=== PATIENT | female | born 1980 | race Caucasian/White ===

== ENCOUNTER 2021-12-07 11:16 | Inpatient (IN) ==
--- NOTE | 2021-12-07 11:43 | Emergency Department Note ---
History of Present Illness General Chief complaint: Swelling/Edema to Extremity Stated complaint: SWELLING LE Time Seen by Provider: 12/07/21 11:24 Source: family (Parents at bedside) History of Present Illness Provider complaint: Left lower extremity swelling Onset (ago): day(s) 1 Location: lower extremity and left Radiation: non-radiation Maximum Pain Intensity: 0 40-year-old female presents emergency department for left lower extremity swelling. Patient has significant developmental delay, is blind, nonverbal, and history is provided by the parents. The parents report that the patient started having swelling of the left lower extremity today. They report no falls. Patient is nonmobile. She is in her wheelchair. They report no fevers. They state that she has been having her normal 30 seizures a day which is at her baseline. Father reports that the patient's blood pressure is usually in the 110s and her heart rate is sometimes elevated. Patient is him immunized. 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 Home Medications Medication Instructions Recorded Confirmed Type ciprofloxacin HCl 250 mg tablet 250 mg PO BID 12/07/21 12/07/21 History clonazepam 2 mg disintegrating 1 mg PO DAILY PRN 12/07/21 12/07/21 History tablet desonide 0.05 % topical cream 1 applic TOPICAL DAILY PRN 12/07/21 12/07/21 History levetiracetam 1,000 mg tablet See Rx Instructions .ROUTE .COMPLEX 12/07/21 12/07/21 History levetiracetam 250 mg tablet See Rx Instructions .ROUTE .COMPLEX 12/07/21 12/07/21 History phenobarbital 32.4 mg tablet 64.8 mg PO BID 12/07/21 12/07/21 History Allergies Allergy/AdvReac Type Severity Reaction Status Date / Time levetiracetam [From [facility]] AdvReac Severe high Unverified 12/07/21 14:48 ammonia Macrolide Antibiotics AdvReac Severe Rash Unverified 12/07/21 14:48 peach AdvReac Intermediate Rash Unverified 12/07/21 14:48 Past Med/Surg History Medical History Blind Developmental delay, profound No pertinent family history Seizure Viral encephalitis Surgical History No pertinent past surgical history Social History Smoking Status: Never smoker Feels Safe at Home: Yes Review of Systems Unobtainable due to cognitive status Physical Exam Vital Signs Vital Signs - 24 hr 12/07/21 11:19 12/07/21 12:42 12/07/21 12:45 Temperature 36.6 C Temperature Source Temporal Artery Scan Pulse Rate 123 H 122 H 121 H Pulse Rate from SpO2 Sensor 121 H Respiratory Rate 18 19 20 Respiratory Depth Normal Blood Pressure 94/66 L 98/73 L Blood Pressure Mean 75 81 Pulse Oximetry 98 98 Oxygen Delivery Method Room Air Room Air Room Air Sepsis Recent Fever Within 48 Hours No Sepsis New/Unexplained Change in Mental Status No Sepsis Action Taken by Nursing No Action Required 12/07/21 12:50 12/07/21 13:00 12/07/21 13:01 Temperature Temperature Source Pulse Rate 122 H 120 H 120 H Pulse Rate from SpO2 Sensor 120 H 120 H 119 H Respiratory Rate 19 15 22 Respiratory Depth Blood Pressure 112/84 Blood Pressure Mean 93 Pulse Oximetry 95 96 96 Oxygen Delivery Method Room Air Room Air Room Air Sepsis Recent Fever Within 48 Hours Sepsis New/Unexplained Change in Mental Status Sepsis Action Taken by Nursing 12/07/21 13:10 12/07/21 13:20 12/07/21 13:30 Temperature Temperature Source Pulse Rate 107 H 120 H 117 H Pulse Rate from SpO2 Sensor 119 H 120 H 117 H Respiratory Rate 20 19 21 Respiratory Depth Blood Pressure 134/103 H Blood Pressure Mean 113 Pulse Oximetry 95 95 95 Oxygen Delivery Method Room Air Room Air Room Air Sepsis Recent Fever Within 48 Hours Sepsis New/Unexplained Change in Mental Status Sepsis Action Taken by Nursing 12/07/21 13:40 12/07/21 13:50 12/07/21 14:00 Temperature Temperature Source Pulse Rate 110 H 116 H 115 H Pulse Rate from SpO2 Sensor 118 H 117 H 116 H Respiratory Rate 22 20 26 H Respiratory Depth Blood Pressure 111/77 Blood Pressure Mean 88 Pulse Oximetry 94 95 95 Oxygen Delivery Method Room Air Room Air Room Air Sepsis Recent Fever Within 48 Hours Sepsis New/Unexplained Change in Mental Status Sepsis Action Taken by Nursing 12/07/21 14:10 12/07/21 14:20 12/07/21 14:30 Temperature Temperature Source Pulse Rate 112 H 110 H Pulse Rate from SpO2 Sensor 112 H 110 H Respiratory Rate 18 35 H Respiratory Depth Blood Pressure 106/77 Blood Pressure Mean 86 Pulse Oximetry 96 96 Oxygen Delivery Method Room Air Room Air Sepsis Recent Fever Within 48 Hours Sepsis New/Unexplained Change in Mental Status Sepsis Action Taken by Nursing 12/07/21 15:17 12/07/21 15:30 12/07/21 16:00 Temperature Temperature Source Pulse Rate Pulse Rate from SpO2 Sensor Respiratory Rate Respiratory Depth Blood Pressure 108/72 94/76 L 98/73 L Blood Pressure Mean 84 82 81 Pulse Oximetry Oxygen Delivery Method Sepsis Recent Fever Within 48 Hours Sepsis New/Unexplained Change in Mental Status Sepsis Action Taken by Nursing 12/07/21 16:30 Temperature Temperature Source Pulse Rate Pulse Rate from SpO2 Sensor Respiratory Rate Respiratory Depth Blood Pressure 97/64 L Blood Pressure Mean 75 Pulse Oximetry Oxygen Delivery Method Sepsis Recent Fever Within 48 Hours Sepsis New/Unexplained Change in Mental Status Sepsis Action Taken by Nursing Physical Exam GENERAL: Extremely frail appearing cachectic female with contractures in wheelchair. Parents are at bedside. Father helped move the patient to the bed. HENT: Exam performed. -Head: Normocephalic and atraumatic. -Right Ear: External ear normal. No mastoid tenderness. -Left Ear: External ear normal. No mastoid tenderness. CV: Tachycardic rate, regular rhythm, normal heart sounds and intact distal pulses. There is no peripheral edema. Palpable radial pulses bue. PULM/CHEST: Diminished breath sounds bilaterally. ABD: The abdomen is soft. MUSC/SKEL: Bilateral upper and lower extremities are severely contracted. There is swelling to the left lower extremity. Palpable DP and PT pulses bilateral lower extremities. NEURO: At baseline per parents. SKIN: Abrasion over the left knee. Course Course 1124: The patient was evaluated in room B8. A complete history and physical exam was performed Cardiac monitoring: An order was placed for continuous cardiac monitoring. The monitor shows a rate of 120 with sinus tachycardia rhythm 1325: residential service technician states there is a large left-sided DVT. Given the patient's tachycardia will obtain CTA of the chest to rule out PE. 1534: Vital signs improved with IV fluids. Labs show an elevated troponin. White blood cell count 14. CTA of the chest does show large PE burden with right heart strain. We will plan on admitting the patient to the hospital service. Will obtain CT of the head prior to administering heparin. 1630: Vital signs stable. CT of the head shows no ICH. Will start heparin for the patient's PEs and DVT. Patient be admitted to the [facility] hospitalist team. Administered Medications Heparin Sodium/Dextrose (Heparin Sodium/Dextrose) 25,000 units in 500 mls @ 14 mls/hr IV .Q24H GINA; Protocol Stop: 01/06/22 15:44 Last Admin: 12/07/21 16:31 Dose: 700 units/hr, 14 mls/hr Documented by: [id number] Cosigned by: [id number] Sodium Chloride (Nss) 500 mls @ 100 mls/hr IV .Q5H GINA Stop: 01/06/22 16:14 Last Admin: 12/07/21 16:35 Dose: 100 mls/hr Documented by: [id number] Discontinued Medications Heparin Sodium (Porcine) (Heparin Sod (Porcine) 1000 Unit/Ml) 1 units IV NOW ONE Stop: 12/07/21 15:46 Last Admin: 12/07/21 16:30 Dose: 3,000 units Documented by: [id number] Cosigned by: [id number] Heparin Sodium/Dextrose (Heparin Iv Adult Wt-Based Standard With Bolus Protocol) 1 ea IV NOW STA; Protocol Stop: 12/07/21 15:31 Last Admin: 12/07/21 16:35 Dose: 1 ea Documented by: [id number] Sodium Chloride (Nss 1000ml) 1,000 mls @ 999 mls/hr IV .Q1H1M ONE Stop: 12/07/21 13:56 Last Infusion: 12/07/21 14:25 Dose: 0 mls/hr Documented by: [id number] Admin: 12/07/21 13:24 Dose: 999 mls/hr Documented by: [id number] Ioversol (Optiray 320 125ml) 110 ml IV ONCE ONE Stop: 12/07/21 15:16 Last Admin: 12/07/21 15:16 Dose: 110 ml Documented by: [id number] Lorazepam (Lorazepam 2 Mg/1 Ml Vial) 0.25 mg IV NOW STA Stop: 12/07/21 14:23 Last Admin: 12/07/21 14:35 Dose: 0.25 mg Documented by: [id number] Critical Care Time Critical Care Time: Yes Total Critical Care Time: 43 I have personally spent greater than 43 minutes of critical care time in the direct management of this patient. This includes bedside care, interpretation of diagnostic studies, and testing, discussion with consultants, patient, and family members, and other required patient management activities. This 43 minutes is in excess of all separately billable procedures. Medical Decision Making Laboratory Data Result diagrams: 12/07/21 12:34 12/07/21 14:09 Lab Results 12/07/21 12/07/21 12/07/21 Range/Units 12:34 12:34 12:34 WBC 14.12 H (4.8-10.8) K/uL RBC 4.13 L (4.2-5.4) M/uL Hgb 13.9 (12.0-16.0) g/dL Hct 42.1 (37-47) % MCV 101.9 H (80-100) fL MCH 33.7 (25-34) pg MCHC 33.0 (32-36) g/dL RDW Std Deviation 45.4 (36.4-46.3) fL RDW Coeff of Dwight 12.2 (11.5-14.5) % Plt Count 123 L (130-400) K/uL MPV 11.7 H (7.4-10.4) fL Immature Gran % (Auto) 0.4 % Neut % (Auto) 81.9 % Lymph % (Auto) 7.0 % [place] % (Auto) 10.5 % Eos % (Auto) 0.0 % Baso % (Auto) 0.2 % Neut # (Auto) 11.57 H (1.4-6.5) K/uL Lymph # (Auto) 0.99 L (1.2-3.4) K/uL [place] # (Auto) 1.48 H (0.11-0.59) K/uL Eos # (Auto) 0.00 (0-0.5) K/uL Baso # (Auto) 0.03 (0-0.2) K/uL Immature Gran # (Auto) 0.05 H (0.00-0.02) K/uL PT Cancelled INR Cancelled APTT Cancelled PTT Ratio Cancelled Sodium 142 (136-145) mmol/L Potassium TNP Chloride 111 H (98-107) mmol/L Carbon Dioxide 23 (21-32) mmol/L Anion Gap 8 (3-11) BUN 13 (6-23) mg/dl Creatinine 0.62 (0.6-1.2) mg/dl Est Cr Clr Drug Dosing 71.1 ml/min Est GFR ( Amer) 128.0 ml/min Est GFR (Non-Af Amer) 110.4 ml/min BUN/Creatinine Ratio 21.0 H (10-20) Glucose 137 H (70-99(Fasting)) mg/dl Lactate (0.4-2.0) mmol/L Calcium 8.1 L (8.5-10.1) mg/dl Magnesium 2.3 (1.7-2.4) mg/dl Total Bilirubin 0.4 (0.2-1.0) mg/dl AST TNP ALT 23 (7-52) U/L Alkaline Phosphatase 115 H (34-104) U/L Troponin I 0.06 H* (0-0.04) ng/ml Total Protein 7.3 (6.0-8.3) gm/dl Albumin 3.5 (3.4-5.0) gm/dl Globulin 3.8 (2.5-4.0) gm/dl Albumin/Globulin Ratio 0.9 (0.9-2) Procalcitonin Urine Color Urine Appearance (Clear) Urine pH (4.5-7.5) Ur Specific [place] (1.000-1.030) Urine Protein (Negative) Urine Glucose (UA) (Negative) Urine Ketones (Negative) Urine Blood (Negative) Urine Nitrite (Negative) Urine Bilirubin (Negative) Urine Urobilinogen (Negative) Ur Leukocyte Esterase (Negative) Urine WBC (Auto) (0-5) /hpf Urine RBC (Auto) (0-4) /hpf U Hyaline Cast (Auto) (0-5) /lpf U Epithel Cells (Auto) (0-5) /lpf Urine Bacteria (Auto) (Negative) Urine Yeast SARS-CoV-2, RNA, NAAT (NEGATIVE) 12/07/21 12/07/21 12/07/21 Range/Units 12:34 12:34 12:56 WBC (4.8-10.8) K/uL RBC (4.2-5.4) M/uL Hgb (12.0-16.0) g/dL Hct (37-47) % MCV (80-100) fL MCH (25-34) pg MCHC (32-36) g/dL RDW Std Deviation (36.4-46.3) fL RDW Coeff of Dwight (11.5-14.5) % Plt Count (130-400) K/uL MPV (7.4-10.4) fL Immature Gran % (Auto) % Neut % (Auto) % Lymph % (Auto) % [place] % (Auto) % Eos % (Auto) % Baso % (Auto) % Neut # (Auto) (1.4-6.5) K/uL Lymph # (Auto) (1.2-3.4) K/uL [place] # (Auto) (0.11-0.59) K/uL Eos # (Auto) (0-0.5) K/uL Baso # (Auto) (0-0.2) K/uL Immature Gran # (Auto) (0.00-0.02) K/uL PT INR APTT PTT Ratio Sodium (136-145) mmol/L Potassium Chloride (98-107) mmol/L Carbon Dioxide (21-32) mmol/L Anion Gap (3-11) BUN (6-23) mg/dl Creatinine (0.6-1.2) mg/dl Est Cr Clr Drug Dosing ml/min Est GFR ( Amer) ml/min Est GFR (Non-Af Amer) ml/min BUN/Creatinine Ratio (10-20) Glucose (70-99(Fasting)) mg/dl Lactate 1.4 (0.4-2.0) mmol/L Calcium (8.5-10.1) mg/dl Magnesium (1.7-2.4) mg/dl Total Bilirubin (0.2-1.0) mg/dl AST ALT (7-52) U/L Alkaline Phosphatase (34-104) U/L Troponin I (0-0.04) ng/ml Total Protein (6.0-8.3) gm/dl Albumin (3.4-5.0) gm/dl Globulin (2.5-4.0) gm/dl Albumin/Globulin Ratio (0.9-2) Procalcitonin Cancelled Urine Color Urine Appearance (Clear) Urine pH (4.5-7.5) Ur Specific [place] (1.000-1.030) Urine Protein (Negative) Urine Glucose (UA) (Negative) Urine Ketones (Negative) Urine Blood (Negative) Urine Nitrite (Negative) Urine Bilirubin (Negative) Urine Urobilinogen (Negative) Ur Leukocyte Esterase (Negative) Urine WBC (Auto) (0-5) /hpf Urine RBC (Auto) (0-4) /hpf U Hyaline Cast (Auto) (0-5) /lpf U Epithel Cells (Auto) (0-5) /lpf Urine Bacteria (Auto) (Negative) Urine Yeast SARS-CoV-2, RNA, NAAT NEGATIVE (NEGATIVE) 12/07/21 12/07/21 12/07/21 Range/Units 14:09 14:09 14:09 WBC (4.8-10.8) K/uL RBC (4.2-5.4) M/uL Hgb (12.0-16.0) g/dL Hct (37-47) % MCV (80-100) fL MCH (25-34) pg MCHC (32-36) g/dL RDW Std Deviation (36.4-46.3) fL RDW Coeff of Dwight (11.5-14.5) % Plt Count (130-400) K/uL MPV (7.4-10.4) fL Immature Gran % (Auto) % Neut % (Auto) % Lymph % (Auto) % [place] % (Auto) % Eos % (Auto) % Baso % (Auto) % Neut # (Auto) (1.4-6.5) K/uL Lymph # (Auto) (1.2-3.4) K/uL [place] # (Auto) (0.11-0.59) K/uL Eos # (Auto) (0-0.5) K/uL Baso # (Auto) (0-0.2) K/uL Immature Gran # (Auto) (0.00-0.02) K/uL PT 11.8 INR 1.2 H APTT 25.9 PTT Ratio 1.0 Sodium (136-145) mmol/L Potassium 4.0 Chloride (98-107) mmol/L Carbon Dioxide (21-32) mmol/L Anion Gap (3-11) BUN (6-23) mg/dl Creatinine (0.6-1.2) mg/dl Est Cr Clr Drug Dosing ml/min Est GFR ( Amer) ml/min Est GFR (Non-Af Amer) ml/min BUN/Creatinine Ratio (10-20) Glucose (70-99(Fasting)) mg/dl Lactate (0.4-2.0) mmol/L Calcium (8.5-10.1) mg/dl Magnesium (1.7-2.4) mg/dl Total Bilirubin (0.2-1.0) mg/dl AST 16 ALT (7-52) U/L Alkaline Phosphatase (34-104) U/L Troponin I (0-0.04) ng/ml Total Protein (6.0-8.3) gm/dl Albumin (3.4-5.0) gm/dl Globulin (2.5-4.0) gm/dl Albumin/Globulin Ratio (0.9-2) Procalcitonin < 0.05 Urine Color Urine Appearance (Clear) Urine pH (4.5-7.5) Ur Specific [place] (1.000-1.030) Urine Protein (Negative) Urine Glucose (UA) (Negative) Urine Ketones (Negative) Urine Blood (Negative) Urine Nitrite (Negative) Urine Bilirubin (Negative) Urine Urobilinogen (Negative) Ur Leukocyte Esterase (Negative) Urine WBC (Auto) (0-5) /hpf Urine RBC (Auto) (0-4) /hpf U Hyaline Cast (Auto) (0-5) /lpf U Epithel Cells (Auto) (0-5) /lpf Urine Bacteria (Auto) (Negative) Urine Yeast SARS-CoV-2, RNA, NAAT (NEGATIVE) 12/07/21 Range/Units 14:15 WBC (4.8-10.8) K/uL RBC (4.2-5.4) M/uL Hgb (12.0-16.0) g/dL Hct (37-47) % MCV (80-100) fL MCH (25-34) pg MCHC (32-36) g/dL RDW Std Deviation (36.4-46.3) fL RDW Coeff of Dwight (11.5-14.5) % Plt Count (130-400) K/uL MPV (7.4-10.4) fL Immature Gran % (Auto) % Neut % (Auto) % Lymph % (Auto) % [place] % (Auto) % Eos % (Auto) % Baso % (Auto) % Neut # (Auto) (1.4-6.5) K/uL Lymph # (Auto) (1.2-3.4) K/uL [place] # (Auto) (0.11-0.59) K/uL Eos # (Auto) (0-0.5) K/uL Baso # (Auto) (0-0.2) K/uL Immature Gran # (Auto) (0.00-0.02) K/uL PT INR APTT PTT Ratio Sodium (136-145) mmol/L Potassium Chloride (98-107) mmol/L Carbon Dioxide (21-32) mmol/L Anion Gap (3-11) BUN (6-23) mg/dl Creatinine (0.6-1.2) mg/dl Est Cr Clr Drug Dosing ml/min Est GFR ( Amer) ml/min Est GFR (Non-Af Amer) ml/min BUN/Creatinine Ratio (10-20) Glucose (70-99(Fasting)) mg/dl Lactate (0.4-2.0) mmol/L Calcium (8.5-10.1) mg/dl Magnesium (1.7-2.4) mg/dl Total Bilirubin (0.2-1.0) mg/dl AST ALT (7-52) U/L Alkaline Phosphatase (34-104) U/L Troponin I (0-0.04) ng/ml Total Protein (6.0-8.3) gm/dl Albumin (3.4-5.0) gm/dl Globulin (2.5-4.0) gm/dl Albumin/Globulin Ratio (0.9-2) Procalcitonin Urine Color Dark Yellow Urine Appearance Clear (Clear) Urine pH 5.5 (4.5-7.5) Ur Specific [place] 1.020 (1.000-1.030) Urine Protein 1+ H (Negative) Urine Glucose (UA) Trace H (Negative) Urine Ketones Negative (Negative) Urine Blood 1+ H (Negative) Urine Nitrite Negative (Negative) Urine Bilirubin Negative (Negative) Urine Urobilinogen Negative (Negative) Ur Leukocyte Esterase Trace H (Negative) Urine WBC (Auto) 5-10 H (0-5) /hpf Urine RBC (Auto) 10-30 H (0-4) /hpf U Hyaline Cast (Auto) 1-5 (0-5) /lpf U Epithel Cells (Auto) >30 H (0-5) /lpf Urine Bacteria (Auto) Negative (Negative) Urine Yeast Not Reportable SARS-CoV-2, RNA, NAAT (NEGATIVE) Imaging Data Radiologist's Impression: Venous Doppler Study 12/07/21 11:33 LEFT LOWER EXTREMITY VENOUS DOPPLER HISTORY: Left leg swelling. COMPARISON STUDY: None. FINDINGS: Occlusive thrombus seen within the left external iliac, common femoral, superficial femoral, and popliteal veins. The visualized left calf vessels appear patent. IMPRESSION: Extensive DVT within the left lower extremity which involves the left external iliac vein. ACT 112: Negative or not required by law. Electronically signed by: Eric Sharif M.D. 12/07/2021 1:33 PM Chest X-Ray 12/07/21 11:34 XR chest 1V portable HISTORY: SEPSIS COMPARISON: None. FINDINGS: No pneumothorax. No pleural effusions. Severe dextroscoliosis of the thoracolumbar spine. There are low lung volumes. The heart is normal in size. Hazy right perihilar densities. The left lung is clear.. IMPRESSION: 1. Severe dextroscoliosis. 2. Hazy right perihilar densities which could be due to patient rotation or a mild pneumonitis. ACT 112: Negative or not required by law. Electronically signed by: Eric Sharif M.D. 12/07/2021 12:23 PM Chest CTA 12/07/21 13:24 CHEST CTA for PULMONARY ARTERIES CT DOSE: 284.06 mGy.cm HISTORY: Seizure. Hypoxia. Positive DVT. Assess for pulmonary embolus. TECHNIQUE: Multiaxial CT images of the chest were performed following the intravenous administration of contrast to evaluate the pulmonary arteries. Ma ximal intensity projection images were also obtained. A dose lowering technique was utilized adhering to the principles of ALARA. COMPARISON STUDY: None. FINDINGS: Limited views of the upper abdomen demonstrate a normal liver. Splenosis versus an accessory spleen within the left upper quadrant. This is of doubtful clinical significance. A few bilateral thyroid nodules with the largest on the right measuring 11 mm. This does not meet CT criteria for follow-up. No mediastinal or hilar lymphadenopathy. Normal esophagus. Dextroscoliosis of the t horacolumbar spine. No fractures within the visualized osseous structures. No pneumothorax. The central airways are patent. Faint groundglass densities within the left lower lobe posteriorly favor mild dependent change. Otherwise, no focal lung consolidations to suggest pneumonia or a pulmonary infarct. The heart is normal in size. There is mild flattening of the interventricular septum consistent with a right-sided heart strain. Normal caliber thoracic aorta with no evidence for dissection. Extensive bilateral pulmonary emboli involving the majority of the left lobar and segmental pulmonary arteries as well as the majority the right lower lobe pulmonary arteries. There are also pulmonary em boli seen within the right upper lobe and right middle lobe segmental pulmonary arteries. IMPRESSION: 1. Extensive bilateral pulmonary emboli. This results in mild right-sided heart strain. 2. No focal lung consolidations to suggest a pulmonary infarct. ACT 112: Negative or not required by law. Electronically signed by: Eric Sharif M.D. 12/07/2021 3:[address] 12/07/21 15:34 CT OF THE HEAD WITHOUT CONTRAST CLINICAL HISTORY: Seizure. COMPARISON STUDY: No previous studies for comparison. CT DOSE: 537.48 mGy.cm TECHNIQUE: Helical axial images of the head were obtained without IV contrast. Automated exposure control was utilized for the study. A dose lowering technique was utilized adhering to the principles of ALARA. FINDINGS: Sensitivity for detection of acute intracranial hemorrhage is diminished given intravascular contrast from recent contrast-enhanced CT. However, no acute intracranial hemorrhage is noted. Note is made of symmetric extensive encephalomalacia/volume loss within the bilateral temporal, parietal and occipital lobes. Associated gyral calcification is present. There is marked dilatation of the atria and temporal horns of the lateral ventricles. There are no findings to suggest acute dural sinus thrombosis or acute territorial infarct. No acute calvarial fracture is noted. Right temporal bone defect is chronic. IMPRESSION: 1. No acute intracranial hemorrhage. 2. Encephalomalacia/volume loss within the bilateral temporal, occipital and parietal lobes with symmetric marked dilatation of the atria and temporal horns of the lateral ventricles. These findings are chronic and suggest remote insult with resultant ventricular dilatation. 3. No acute calvarial fracture. ACT 112: Negative or not required by law. Electronically signed by: Jeremiah Duarte M.D. 12/07/2021 4:14 PM ECG Data Indication: + other (sepsis) Rate (beats per minute): 122 Rhythm: + sinus tachycardia ECG Intervals/blocks: + Normal RI and + Normal QT-c ECG ST segments: + Normal ST segments Additional Comments: QRS 62 MDM Narrative 1124: The patient was evaluated in room B8. A complete history and physical exam was performed Cardiac monitoring: An order was placed for continuous cardiac monitoring. The monitor shows a rate of 120 with sinus tachycardia rhythm 1325: residential service technician states there is a large left-sided DVT. Given the patient's tachycardia will obtain CTA of the chest to rule out PE. 1534: Vital signs improved with IV fluids. Labs show an elevated troponin. White blood cell count 14. CTA of the chest does show large PE burden with right heart strain. We will plan on admitting the patient to the hospital service. Will obtain CT of the head prior to administering heparin. 1630: Vital signs stable. CT of the head shows no ICH. Will start heparin for the patient's PEs and DVT. Patient be admitted to the [facility] Hospitalist team. Impression & Plan Pulmonary emboli Discharge Plan Visit Data Chief Complaint: Swelling/Edema to Extremity Stated Complaint: SWELLING LE ED Provider: Marcin Degroot Discharge Problem: Pulmonary emboli Patient Disposition: Admitted As Inpatient Forms Stand Alone Forms: [facility] Prescriptions Prescriptions: No Action desonide 0.05 % Cream 1 applic TOPICAL DAILY PRN (Reason: skin irratation) RF: 0 ciprofloxacin HCl 250 mg tablet 250 mg PO BID RF: 0 levetiracetam 250 mg tablet See Rx Instructions .ROUTE .COMPLEX RF: 0 phenobarbital 32.4 mg tablet 64.8 mg PO BID RF: 0 clonazepam 2 mg tablet,disintegrating 1 mg PO DAILY PRN (Reason: seizure/insomnia) RF: 0 levetiracetam 1,000 mg tablet See Rx Instructions .ROUTE .COMPLEX RF: 0 Referrals Referrals: PCP,NO [Physician] -
--- NOTE | 2021-12-07 12:25 | XRay Report ---
XR chest 1V portable HISTORY: SEPSIS COMPARISON: None. FINDINGS: No pneumothorax. No pleural effusions. Severe dextroscoliosis of the thoracolumbar spine. T here are low lung volumes. The heart is normal in size. Hazy right perihilar densities. The left lung is clear.. IMPRESSION: 1. Severe dextroscoliosis. 2. Hazy right perihilar densities which could be due to patient rotation or a mild pneumonitis. ACT 112: Negative or not required by law. Electronically signed by: Eric Sharif M.D. 12/07/2021 12:23 PM
[2021-12-07 12:53] LABS: Basophils # (auto) 0.03 K/uL (0-0.2); Basophils % (auto) 0.2 %; Hematocrit (blood only) 42.1 % (37-47); Hemoglobin 13.9 g/dL (12.0-16.0); Immature Granulocytes # (auto) 0.05 K/uL (0.00-0.02); Immature Granulocytes % (auto) 0.4 %; Lymphocytes # (auto) 0.99 K/uL (1.2-3.4); Mean Corpuscular Hemoglobin 33.7 pg (25-34); Mean Corpuscular Volume 101.9 fL (80-100); Mean Platelet Volume 11.7 fL (7.4-10.4); Monocytes # (auto) 1.48 K/uL (0.11-0.59); Monocytes % (auto) 10.5 %; Neutrophils # (auto) 11.57 K/uL (1.4-6.5); Neutrophils % (auto) 81.9 %; Platelet Count 123 K/uL (130-400); RDW Coefficient of Variation 12.2 % (11.5-14.5); RDW Standard Deviation 45.4 fL (36.4-46.3); Red Blood Count 4.13 M/uL (4.2-5.4); White Blood Count 14.12 K/uL (4.8-10.8)
[2021-12-07] MEDS ORDERED: SODIUM CHLORIDE 0.9% 1000ML 1,000 ML IV ONE (12:56)
[2021-12-07 13:34] LABS: Alanine Aminotransferase 23 U/L (7-52); Albumin Globulin Ratio 0.9 (0.9-2); Albumin Level 3.5 gm/dl (3.4-5.0); Alkaline Phosphatase 115 U/L (34-104); Anion Gap 8 (3-11); Bilirubin,Total 0.4 mg/dl (0.2-1.0); Blood Urea Nitrogen 13 mg/dl (6-23); Calcium 8.1 mg/dl (8.5-10.1); Carbon Dioxide 23 mmol/L (21-32); Chloride 111 mmol/L (98-107); Creatinine Clr Calc Pharmacy 71.1 ml/min; Est GFR (Non-African American) 110.4 ml/min; Globulin 3.8 gm/dl (2.5-4.0); Glucose 137 mg/dl (70-99(Fasting)); Magnesium 2.3 mg/dl (1.7-2.4); Sodium 142 mmol/L (136-145); Total Protein 7.3 gm/dl (6.0-8.3)
--- NOTE | 2021-12-07 13:34 | Ultrasound Report ---
LEFT LOWER EXTREMITY VENOUS DOPPLER HISTORY: Left leg swelling. COMPARISON STUDY: None. FINDINGS: Occlusive thrombus seen within the left external iliac, common femoral, superficial femoral , and popliteal veins. The visualized left calf vessels appear patent. IMPRESSION: Extensive DVT within the left lower extremity which involves the left external iliac vein. ACT 112: Negative or not required by law. Electronically signed by: Eric Sharif M.D. 12/07/2021 1:33 PM
[2021-12-07] MEDS ORDERED: LORazepam 2 MG/1 ML VIAL IV STA (14:22)
[2021-12-07 14:39] LABS: INR 1.2 (0.9-1.1); Partial Thromboplastin Time 25.9 Seconds (21.0-31.0); Prothrombin Time 11.8 Seconds (9.0-12.0)
[2021-12-07 14:54] LABS: Appearance Urine Clear (Clear); Bacteria Urine Automated Negative (Negative); Bilirubin Urine Negative (Negative); Blood Urine 1+ (Negative); Color Urine Dark Yellow; Epithelial Cell Urine Auto >30 /lpf (0-5); Glucose Urine UA Trace (Negative); Ketones Urine Negative (Negative); Leukocyte Esterase Urine Trace (Negative); Nitrite Urine Negative (Negative); Protein Urine 1+ (Negative); Urobilinogen Urine Negative (Negative); pH Urine 5.5 (4.5-7.5)
[2021-12-07] MEDS ORDERED: OPTIRAY 320 125ml IV ONE (15:15)
--- NOTE | 2021-12-07 15:28 | CT Scan Report ---
CHEST CTA for PULMONARY ARTERIES CT DOSE: 284.06 mGy.cm HISTORY: Seizure. Hypoxia. Positive DVT. Assess for pulmonary embolus. TECHNIQUE: Multiaxial CT images of the chest were performed following the intravenous administration of contrast to evaluate the pulmonary arteries. Maximal intensity projection images were also obtaine d. A dose lowering technique was utilized adhering to the principles of ALARA. COMPARISON STUDY: None. FINDINGS: Limited views of the upper abdomen demonstrate a normal liver. Splenosis versus an accessor y spleen within the left upper quadrant. This is of doubtful clinical significance. A few bilateral t hyroid nodules with the largest on the right measuring 11 mm. This does not meet CT criteria for foll ow-up. No mediastinal or hilar lymphadenopathy. Normal esophagus. Dextroscoliosis of the thoracolumba r spine. No fractures within the visualized osseous structures. No pneumothorax. The central airways are patent. Faint groundglass densities within the left lower lobe posteriorly favor mild dependent c hange. Otherwise, no focal lung consolidations to suggest pneumonia or a pulmonary infarct. The heart is normal in size. There is mild flattening of the interventricular septum consistent with a right-s ided heart strain. Normal caliber thoracic aorta with no evidence for dissection. Extensive bilateral pulmonary emboli involving the majority of the left lobar and segmental pulmonary arteries as well a s the majority the right lower lobe pulmonary arteries. There are also pulmonary emboli seen within t he right upper lobe and right middle lobe segmental pulmonary arteries. IMPRESSION: 1. Extensive bilateral pulmonary emboli. This results in mild right-sided heart strain. 2. No focal lung consolidations to suggest a pulmonary infarct. ACT 112: Negative or not required by law. Electronically signed by: Eric Sharif M.D. 12/07/2021 3:27 PM
[2021-12-07] MEDS ORDERED: Heparin IV Adult Wt-Based Standard WITH Bolus Protocol IV STA (15:30)
[2021-12-07] MEDS ORDERED: HEPARIN SOD (PORCINE) 1000 UNIT/ML IV ONE (15:45)
--- NOTE | 2021-12-07 16:16 | CT Scan Report ---
CT OF THE HEAD WITHOUT CONTRAST CLINICAL HISTORY: Seizure. COMPARISON STUDY: No previous studies for comparison. CT DOSE: 537.48 mGy.cm TECHNIQUE: Helical axial images of the head were obtained without IV contrast. Automated exposure con trol was utilized for the study. A dose lowering technique was utilized adhering to the principles o f ALARA. FINDINGS: Sensitivity for detection of acute intracranial hemorrhage is diminished given intravascula r contrast from recent contrast-enhanced CT. However, no acute intracranial hemorrhage is noted. Note is made of symmetric extensive encephalomalacia/volume loss within the bilateral temporal, parietal and occipital lobes. Associated gyral calcification is present. There is marked dilatation of the atr ia and temporal horns of the lateral ventricles. There are no findings to suggest acute dural sinus t hrombosis or acute territorial infarct. No acute calvarial fracture is noted. Right temporal bone def ect is chronic. IMPRESSION: 1. No acute intracranial hemorrhage. 2. Encephalomalacia/volume loss within the bilateral temporal, occipital and parietal lobes with symm etric marked dilatation of the atria and temporal horns of the lateral ventricles. These findings are chronic and suggest remote insult with resultant ventricular dilatation. 3. No acute calvarial fracture. ACT 112: Negative or not required by law. Electronically signed by: Jeremiah Duarte M.D. 12/07/2021 4:14 PM
[2021-12-07] MEDS: HEPARIN SODIUM/DEXTROSE 25,000 UNITS/500 ML BAG IV SCH (16:31)
[2021-12-07] MEDS: SODIUM CHLORIDE 0.9% 500 ML IV SCH (16:35)
[2021-12-07] MEDS ORDERED: DESONIDE CR 15 GM TUBE EXT PRN (17:19)
--- NOTE | 2021-12-07 17:50 | History & Physical Report ---
Date of Service December 07, 2021 Assessment & Plan (1) Pulmonary emboli: (2) Developmental delay, profound: Plan: #. DVT and PE Patient presented with acute swelling of left lower extremity Admitting LLE venous Doppler positive for DVT Admitting CTA chest: Positive for extensive bilateral PE with mild right-sided heart strain. Admitting troponin elevated, trend troponins, get echo, EKG in a.m. Patient is started on heparin drip in the ED, continue with same. #. Increased seizures Parents report that patient has increased seizures since after starting ciprofloxacin for otitis externa right side on October 30, 2021 They do not want ciprofloxacin to be continued while inpatient. Per the parents, 3-4 seizures per week is normal for the patient but patient had 30 seizures on the day of arrival. Admitting CT head: No new acute findings. Continue home dose of medications, consult neuro, continue with IV fluids. Follow labs, await admitting blood cultures. #. History of cerebral palsy #. Developmental delay #. Failure to thrive Patient has history of cerebral palsy, at baseline gets on her knees in the padded areas of her home, wheelchair-bound other times Patient is on soft diet, likes oatmeal, BMI 16.6 at presentation, dietary consult DNR/DNI Patient on heparin drip for PE Disposition: PCU telemetry. History of Present Illness Chief Complaint: Acute LLE swelling Primary Care Provider: Danny Vee DO 41-year-old female with PMH of cerebral palsy, cortical blindness, cortical deafness, herpes simplex encephalitis at age 9-month, scoliosis and seizure disorder [patient of Dr. Figueroa] presented to our ED 12/07 with complaint of acute onset swelling of left lower extremity. Patient is cortical blind and cortical deaf, history received from records and from her parents at bedside. Per patient's parent, they noticed acute swelling of her left lower extremity on the morning of the day of her arrival, it was not like this the evening prior. On the background, patient had right ear swelling and was started on ciprofloxacin on October and patient has been having more seizures and becoming less active since then. At baseline she gets on her knees and moves around the padded areas in her room, rest of the time she is wheelchair-bound. But after starting ciprofloxacin, patient had had more seizures and had become less active. Per parents, patient did not have any fever but is having more seizures, is getting constipated lately; both of them after starting ciprofloxacin in October 30. They report patient swallow okay. Patient likes oatmeal/soft consistency diet/applesauce. Definitely no questions of his smoking/alcohol/recreational drugs. DNR/DNI per patient parents. Allergies Allergy/AdvReac Type Severity Reaction Status Date / Time levetiracetam [From [facility]] AdvReac Severe high Unverified 12/07/21 14:48 ammonia Macrolide Antibiotics AdvReac Severe Rash Unverified 12/07/21 14:48 peach AdvReac Intermediate Rash Unverified 12/07/21 14:48 Home Medications Medication Instructions Recorded Confirmed Type ciprofloxacin HCl 250 mg tablet 250 mg PO BID 12/07/21 12/07/21 History clonazepam 2 mg disintegrating 1 mg PO DAILY PRN 12/07/21 12/07/21 History tablet desonide 0.05 % topical cream 1 applic TOPICAL DAILY PRN 12/07/21 12/07/21 History levetiracetam 1,000 mg tablet See Rx Instructions .ROUTE .COMPLEX 12/07/21 12/07/21 History levetiracetam 250 mg tablet See Rx Instructions .ROUTE .COMPLEX 12/07/21 12/07/21 History phenobarbital 32.4 mg tablet 64.8 mg PO BID 12/07/21 12/07/21 History Past Med/Surg History Medical History Blind Developmental delay, profound No pertinent family history Seizure Viral encephalitis Surgical History No pertinent past surgical history Social History Smoking Status: Never smoker Feels Safe at Home: Yes Physical Exam Physical Exam: GENERAL: sleeping, couldn't hear, curled up, spastic hands and feet, lean and thin appearance HEENT: No pallor, no icterus. Pupils equal, round and reactive to light. Oral mucosa moist. NECK: No JVD, no neck masses. HEART: S1 and S2 heard. Regular rate and rhythm. No murmur, no gallop. RESPIRATORY SYSTEM: No accessory muscle use. No wheezing, no crackles. ABDOMEN: Soft, bowel sounds present, nontender, no distention. CENTRAL NERVOUS SYSTEM: No facial droop. EXTREMITIES: LLE swelling/warm with minimal erythema seen. RLE thin and no edema. Pt moved extremities Results & Data Results & Data ([facility]) Vital Signs (Past 12 Hours) Vital Signs Temp Pulse Resp BP Pulse Ox 12/07/21 16:30 97/64 L 12/07/21 16:00 98/73 L 12/07/21 15:30 94/76 L 12/07/21 15:17 108/72 12/07/21 14:30 106/77 12/07/21 14:20 110 H 35 H 96 12/07/21 14:10 112 H 18 96 12/07/21 14:00 115 H 26 H 111/77 95 12/07/21 13:50 116 H 20 95 12/07/21 13:40 110 H 22 94 12/07/21 13:30 117 H 21 134/103 H 95 12/07/21 13:20 120 H 19 95 12/07/21 13:10 107 H 20 95 12/07/21 13:01 120 H 22 112/84 96 12/07/21 13:00 120 H 15 96 12/07/21 12:50 122 H 19 95 12/07/21 12:45 121 H 20 98/73 L 98 12/07/21 12:42 122 H 19 12/07/21 11:19 36.6 C 123 H 18 94/66 L 98 Code Status & VTE Plan VTE Prophylaxis Plan VTE Prophylaxis will be ordered: No (1) Pulmonary emboli Pulmonary embolism type: multiple subsegmental (without acute cor pulmonale) Qualified Code(s): I26.94 - Multiple subsegmental pulmonary emboli without acute cor pulmonale
[2021-12-07] MEDS ORDERED: clonazePAM 1 MG TAB PO PRN (20:08)
[2021-12-07] MEDS ORDERED: PHENobarbitaL 30 MG TAB PO SCH (21:00)
[2021-12-07] MEDS ORDERED: SODIUM CHLORIDE 0.45 % 1,000 ML IV ONE (23:03)
[2021-12-07] MEDS: PHENobarbitaL 30 MG TAB PO SCH (23:05)
[2021-12-07 23:17] LABS: Partial Thromboplastin Ratio 2.4
[2021-12-07 23:42] LABS: Partial Thromboplastin Time 63.8 Seconds (21.0-31.0)
[2021-12-08 05:47] LABS: Hematocrit (blood only) 34.8 % (37-47); Hemoglobin 11.4 g/dL (12.0-16.0); Mean Corpuscular Hemoglobin 33.3 pg (25-34); Mean Corpuscular Hgb Conc 32.8 g/dL (32-36); Mean Corpuscular Volume 101.8 fL (80-100); Mean Platelet Volume 11.1 fL (7.4-10.4); Platelet Count 129 K/uL (130-400); RDW Coefficient of Variation 12.2 % (11.5-14.5); RDW Standard Deviation 45.4 fL (36.4-46.3); Red Blood Count 3.42 M/uL (4.2-5.4); White Blood Count 9.22 K/uL (4.8-10.8)
[2021-12-08 06:13] LABS: Partial Thromboplastin Ratio 2.2
[2021-12-08 06:30] LABS: Anion Gap 6 (3-11); Blood Urea Nitrogen 7 mg/dl (6-23); Calcium 7.6 mg/dl (8.5-10.1); Carbon Dioxide 21 mmol/L (21-32); Chloride 116 mmol/L (98-107); Creatinine Clr Calc Pharmacy 101.8 ml/min; Est GFR (African American) > 150.0 ml/min; Est GFR (Non-African American) 133.3 ml/min; Glucose 111 mg/dl (70-99(Fasting)); Phosphorus 2.1 mg/dl (2.5-4.9); Potassium 3.4 mmol/L (3.5-5.1); Sodium 143 mmol/L (136-145)
[2021-12-08 06:47] LABS: Partial Thromboplastin Time 58.4 Seconds (21.0-31.0)
--- NOTE | 2021-12-08 07:28 | Hospitalist Progress Note ---
Date of Service December 08, 2021 Assessment & Plan (1) Pulmonary emboli: (2) Developmental delay, profound: Plan: #. B/L PE d/t LLE DVT #. LLE DVT Patient presented with acute swelling of left lower extremity Admitting LLE venous Doppler positive for DVT Admitting CTA chest: Positive for extensive bilateral PE with mild right-sided heart strain. Admitting troponin elevated at 0.06, flat trended. Admitting ECHO with EF of >70% and grossly normal RV systolic function. Patient is started on heparin drip in the ED, continue with same. Oral anticoagulation to be discussed with family. #. Increased seizures Parents report that patient has increased seizures since after starting ciprofloxacin for otitis externa right side on October 30, 2021 They do not want ciprofloxacin to be continued while inpatient. Cipro DC'd. F/u with OP ENT for f/u on Otitis Externa. Per the parents, 3-4 seizures per week is normal for the patient but patient had 30 seizures on the day of arrival. Admitting CT head: No new acute findings. 12/08 EEG: reviewed. abnormal EEG d/w neuro Keppra dose increased 1.5 g BID Klonopin daily for now. Pt eating ok per RN, IVF if with decreased intake. #. History of cerebral palsy #. Developmental delay #. Failure to thrive Patient has history of cerebral palsy, at baseline gets on her knees in the padded areas of her home, wheelchair-bound other times Patient is on soft diet, likes oatmeal, BMI 16.6 at presentation, dietary consult - recs appreciated. DNR/DNI Patient on heparin drip for PE, need to transition to oral towards the day of DC. Disposition: PCU telemetry. Admission and Anticipated Discharge Date Admission Date: December 07, 2021 Subjective Patient seen and examined at bedside as a follow-up for massive bilateral PE and increased seizures. Patient is cortical deaf and cortical blind. Patient has history of cerebral palsy. Patient lying in bed, sleeping, not in acute distress, on room air. ROS n/a. Reviewed operative Physical Exam Physical Exam: GENERAL: sleeping, couldn't hear, curled up, spastic hands and feet, lean and thin appearance HEENT: No pallor, no icterus. Pupils equal, round and reactive to light. Oral mucosa moist. NECK: No JVD, no neck masses. HEART: S1 and S2 heard. Regular rate and rhythm. No murmur, no gallop. RESPIRATORY SYSTEM: No accessory muscle use. No wheezing, no crackles. ABDOMEN: Soft, bowel sounds present, nontender, no distention. CENTRAL NERVOUS SYSTEM: No facial droop. EXTREMITIES: LLE swelling/warm with minimal erythema seen. RLE thin and no edema. Pt moved extremities Results & Data Results & Data ([facility]) Vital Signs (Past 12 Hours) Vital Signs Temp Pulse Pulse Resp BP BP BP 12/08/21 05:17 36.5 C 104 H 14 106/69 12/08/21 00:32 37.0 C 115 H 16 96/72 L 12/07/21 19:40 37 C 108 H 20 100/72 Pulse Ox 12/08/21 05:17 97 12/08/21 00:32 98 12/07/21 19:40 96 (1) Pulmonary emboli Pulmonary embolism type: multiple subsegmental (without acute cor pulmonale) Qualified Code(s): I26.94 - Multiple subsegmental pulmonary emboli without acute cor pulmonale
[2021-12-08] MEDS ORDERED: levETIRAcetam 250 MG TAB PO SCH (07:30)
[2021-12-08] MEDS ORDERED: levETIRAcetam 500 MG TAB PO SCH ×2 (07:30→16:30)
[2021-12-08] MEDS: POLYETHYLENE (MIRALAX) 17 GM PACK PO SCH (07:56)
[2021-12-08] MEDS: PHENobarbitaL 30 MG TAB PO SCH (07:56)
[2021-12-08 08:28] LABS: Troponin I 0.06 ng/ml (0-0.04)
[2021-12-08] MEDS ORDERED: PHENobarbitaL 30 MG TAB PO SCH (09:00)
[2021-12-08] MEDS ORDERED: POTASSIUM PHOS 3 MMOL/1 ML INFUSION IV STA (09:21)
[2021-12-08] MEDS ORDERED: POTASSIUM PHOSPHATE 15 MMOL in DEXTROSE 5% 250 ML IV ONE (09:30)
[2021-12-08] MEDS: POTASSIUM CHLORIDE / WTR 10 MEQ/100 ML PLCT IV SCH ×2 (10:07→11:11)
--- NOTE | 2021-12-08 12:45 | Electrocardiogram Report ---
Test Reason : Blood Pressure : / mmHG Vent. Rate : 122 BPM Atrial Rate : 122 BPM P-R Int : 130 ms QRS Dur : 062 ms QT Int : 282 ms P-R-T Axes : 042 -46 038 degrees QTc Int : 401 ms Poor data quality, interpretation may be adversely affected Sinus tachycardia Low voltage QRS Left anterior fascicular block Septal infarct , age undetermined Abnormal ECG No previous ECGs available Confirmed by Ld Flores ([id number]) on 12/08/2021 12:45:20 PM Referred By: REFERRED SELF Confirmed By:Ld Flores
--- NOTE | 2021-12-08 13:02 | Electrocardiogram Report ---
Test Reason : Blood Pressure : / mmHG Vent. Rate : 110 BPM Atrial Rate : 110 BPM P-R Int : 122 ms QRS Dur : 050 ms QT Int : 294 ms P-R-T Axes : 085 001 012 degrees QTc Int : 397 ms Poor data quality, interpretation may be adversely affected Sinus tachycardia Low voltage QRS Septal infarct (cited on or before 07-DEC-2021) Abnormal ECG When compared with ECG of 07-DEC-2021 12:43, (unconfirmed) Left anterior fascicular block is no longer Present Questionable change in initial forces of Septal leads ST now depressed in Anterior leads Confirmed by Ld Flores ([id number]) on 12/08/2021 1:02:26 PM Referred By: REFERRED SELF Confirmed By:Ld Flores
[2021-12-08] MEDS: SODIUM CHLORIDE 0.9% 500 ML IV SCH (13:43)
--- NOTE | 2021-12-08 14:40 | Electroencephalogram ---
EEG Procedure Note Date of Service December 08, 2021 Start / End Times Start Time: 0120 End Time: 0140 Referring Physician Constance Thomas MD History Severe encephalopathy complicated by herpes encephalitis with longstanding mental retardation and seizure disorder now with multiple seizures in the setting of infectious illness question ongoing status epilepticus Chung weeks but the EMGs neck pain and there is asymmetry in the weakness and seizures in the clinic January 10, 2020Fridays of the objectively normal [place] is normal large wart to set up to go 0.08154 will be one of the throat 100 and is all day long on I think you should be on 1 tablet shortly anyway 10" recovery to come Topicort the numbers go to be after milk this is more 30 from have sent Wednesday will be the date is no swap this patient's he had another after then nothing after 141 4012 8:00 to 140 in the endocrine clinic 1 Home Medication List Medication Instructions Recorded Confirmed Type ciprofloxacin HCl 250 mg tablet 250 mg PO BID 12/07/21 12/07/21 History clonazepam 2 mg disintegrating 1 mg PO DAILY PRN 12/07/21 12/07/21 History tablet desonide 0.05 % topical cream 1 applic TOPICAL DAILY PRN 12/07/21 12/07/21 History levetiracetam 1,000 mg tablet See Rx Instructions .ROUTE .COMPLEX 12/07/21 12/07/21 History levetiracetam 250 mg tablet See Rx Instructions .ROUTE .COMPLEX 12/07/21 12/07/21 History phenobarbital 32.4 mg tablet 64.8 mg PO BID 12/07/21 12/07/21 History Inpatient Medication List Heparin Sodium/Dextrose (Heparin Sodium/Dextrose) 25,000 units in 500 mls @ 14 mls/hr IV .Q24H [facility]; Protocol Stop: 01/06/22 15:44 Last Admin: 12/07/21 16:31 Dose: 700 units/hr, 14 mls/hr Documented by: [id number] Cosigned by: [id number] Levetiracetam (Levetiracetam 250 Mg Tab) 250 mg PO QDB [facility]INA Stop: 01/07/22 07:29 Last Admin: 12/08/21 07:56 Dose: 250 mg Documented by: [id number] Levetiracetam (Levetiracetam 500 Mg Tab) 1,000 mg PO QDB GINA Stop: 01/07/22 07:29 Last Admin: 12/08/21 07:56 Dose: 1,000 mg Documented by: [id number] Phenobarbital (Phenobarbital 32.4 Mg Tab) 64.8 mg PO BID [facility] Stop: 01/06/22 22:29 Last Admin: 12/08/21 07:56 Dose: 64.8 mg Documented by: [id number] Admin: 12/07/21 23:05 Dose: 64.8 mg Documented by: [id number] Polyethylene Glycol (Polyethylene (Miralax) 17 Gm Pack) 8.5 gm PO DAILY GINA Stop: 01/07/22 08:59 Last Admin: 12/08/21 07:56 Dose: 8.5 gm Documented by: [id number] Discontinued Medications Heparin Sodium (Porcine) (Heparin Sod (Porcine) 1000 Unit/Ml) 1 units IV NOW ONE Stop: 12/07/21 15:46 Last Admin: 12/07/21 16:30 Dose: 3,000 units Documented by: [id number] Cosigned by: [id number] Heparin Sodium/Dextrose (Heparin Iv Adult Wt-Based Standard With Bolus Protocol) 1 ea IV NOW STA; Protocol Stop: 12/07/21 15:31 Last Admin: 12/07/21 16:35 Dose: 1 ea Documented by: [id number] Sodium Chloride (Nss 1000ml) 1,000 mls @ 999 mls/hr IV .Q1H1M ONE Stop: 12/07/21 13:56 Last Infusion: 12/07/21 14:25 Dose: 0 mls/hr Documented by: [id number] Admin: 12/07/21 13:24 Dose: 999 mls/hr Documented by: [id number] Sodium Chloride (Nss) 500 mls @ 100 mls/hr IV .Q5H [facility] Stop: 01/06/22 16:14 Last Admin: 12/08/21 13:43 Dose: Not Given Documented by: [id number] Infusion: 12/07/21 22:30 Dose: 0 mls/hr Documented by: [id number] Admin: 12/07/21 16:35 Dose: 100 mls/hr Documented by: [id number] Sodium Chloride (1/2 Nss) 1,000 mls @ 80 mls/hr IV .[id number] ONE Stop: 12/08/21 11:32 Last Infusion: 12/08/21 08:18 Dose: 0 mls/hr Documented by: [id number] Admin: 12/07/21 23:07 Dose: 80 mls/hr Documented by: [id number] Potassium Chloride (K Cj / Wtr) 10 meq in 100 mls @ 100 mls/hr IV Q1H [facility]INA; Protocol Stop: 12/08/21 11:59 Last Infusion: 12/08/21 12:16 Dose: 0 mls/hr Documented by: [id number] Admin: 12/08/21 11:11 Dose: 100 mls/hr Documented by: [id number] Infusion: 12/08/21 11:07 Dose: 100 mls/hr Documented by: [id number] Admin: 12/08/21 10:07 Dose: 100 mls/hr Documented by: [id number] Potassium Phosphate 15 mmol/ (Dextrose) 255 mls @ 102 mls/hr IV NOW ONE Stop: 12/08/21 11:59 Last Admin: 12/08/21 12:13 Dose: 102 mls/hr Documented by: [id number] Ioversol (Optiray 320 125ml) 110 ml IV ONCE ONE Stop: 12/07/21 15:16 Last Admin: 12/07/21 15:16 Dose: 110 ml Documented by: [id number] Lorazepam (Lorazepam 2 Mg/1 Ml Vial) 0.25 mg IV NOW STA Stop: 12/07/21 14:23 Last Admin: 12/07/21 14:35 Dose: 0.25 mg Documented by: [id number] Phenobarbital (Phenobarbital 32.4 Mg Tab) 97.2 mg PO HS GINA Stop: 01/06/22 20:59 Last Admin: 12/08/21 13:43 Dose: Not Given Documented by: [id number] Description This is a 21 electrode EEG with a single channel dedicated to limited EKG. The electrodes were placed in accordance with the International 10-20 system. This EEG was done as a bedside recording with photic stimulation and video analysis of patient movement and behavior. Drowsiness light sleep not clearly recorded. There was relatively little muscle movement artifact and no obvious repetitive motor activity suggestive of seizure activity was seen on video Under these conditions there is evidence for a background rhythm in the upper theta range at 8 Hz maximal frequency and 30 V maximal amplitude which is symmetrical and maximum posterior head regions. Polymorphic mid to lower frequency modest amplitude theta activity seen over all head regions with some predilection for the right mid temporal regions. In the same areas there is evidence for moderately frequent (once every several minutes) short duration (1 to 2 seconds) bursts of high amplitude theta delta activity having at times rhythmic appearance and with associated sharp waves and occasional spikes that is certainly consistent with focal cortical irritability and potential epileptogenic activity. There is also evidence for isolated phase reversing spikes in the mid temporal regions occurring at a lesser frequency out as isolated events. Occasional rhythmic activity of theta delta type is also seen in the left mid temporal region but the amplitude is reduced and sharp wave activity is not that evident Interpretation This is an abnormal EEG with generalized slowing of all background rhythms consistent with a nonspecific and possibly postictal encephalopathy possibly baseline in light of this patient's clinical status. In addition there is evidence for potentially epileptogenic activity occurring maximally in the right mid temporal region with occasional single activity left mid temporal region. No sustained electrographic seizure activity is seen. There is thus no evidence for electrographic status epilepticus Clinical Correlation See above. Current study is evidence for generalized encephalopathy and focal right mid temporal potentially epileptogenic focus with ongoing mid temporal sharp waves and spikes occurring at a lesser frequency 12 study certainly consistent with the underlying diagnosis of seizure disorder but does not reveal evidence for ongoing focal or generalized status epilepticus Uche Goyal MD Supervising Physician Co-Signing Physician Notes see above yanely goyal md
[2021-12-08] MEDS: oxyCODONE/ACETAMINOPHEN 5mg/325mg TAB PO PRN (16:53)
[2021-12-08] MEDS ORDERED: levETIRAcetam 500 MG in 0.9 % SODIUM CHLORIDE 100 ML IV ONE (18:00)
[2021-12-08] MEDS: clonazePAM 1 MG TAB PO SCH (18:09)
--- NOTE | 2021-12-08 18:45 | Consultation Report ---
DATE OF SERVICE: 12/08/2021 REASON FOR CONSULTATION: Breakthrough seizures. 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 The patient has been a long-term patien t of Dr. Figueroa. She has had episodes of poorly controlled seizures in the past, but by report has n ot had a seizure recently. On this background, the patient sounds as if she had an otitis externa in the right ear and has been taking Cipro for about 3 weeks. Yesterday, it was noted by her parents t hat she had significant swelling of her left lower extremity and she was brought into the hospital. By report, her mother indicates she had at least 30 seizures yesterday, which consisted of brief exte nsor spasms, head drops, eye deviation to the right with some chewing motions - all lasting several s econds. None of her typical generalized seizures have been noted. Prior triggers include sleep depr ivation and viral illness. Today, she is probably having fewer seizures than she had yesterday. Her EEG fortunately did not show any evidence of status epilepticus. It was consistent with generalized encephalopathy and a focal right mid temporal potentially epileptogenic focus with ongoing mid tempo ral sharp waves and spikes occurring at a lesser frequency, certainly consistent with an underlying d iagnosis of seizure, but not evidence of ongoing focal or generalized status epilepticus. The patien jourdan has otherwise been well. She has been taking her medications regularly and not had any vomiting. It sounds as if she has been on many medications in the past. These may have included Dilantin. Lisa núñez mother has listed an allergy to Keppra as high ammonia, in discussion, it sounds like she had hype rammonemia related to Depakote. At baseline, she is cortically blind and deaf and essentially unable to communicate, although parents can read her body language. On this admission, she was diagnosed with a DVT and a pulmonary embolism. Her CT of the head, which I have reviewed both images and report, shows encephalomalacia within the bilateral temporal, occipit al and parietal lobes with symmetric marked dilatation of the atria and temporal horns of the lateral ventricle. These findings are chronic and suggest a remote insult with resultant ventricular dilata tion. No fracture. No hemorrhage. Chest CT consistent with extensive bilateral pulmonary emboli, r esulting in a mild right-sided heart strain. No focal consolidation noted. Labs on admission, white count was 14, H and H 13.9/42, although today, white count is normal, H and H 11/34, platelet count 123 on admission, left shift. Sodium, potassium were normal. Chloride 111. BUN, creatinine 13/0.62. Glucose 137, calcium 8.1, magnesium normal. Troponin elevated. Keppra le clara is unable to be obtained on a stat basis. Phenobarbital level drawn, but pending. Urinalysis; g lucose trace, blood, 1+, leukocyte esterase trace, white blood cells 5-10. COVID testing negative. Blood culture negative at present. HOME MEDICATIONS: Cipro, clonazepam 1 mg daily p.r.n., desonide ointment, Keppra 1250 in the morning and 1500 at night, phenobarbital 64.8 p.o. b.i.d. PAST MEDICAL HISTORY: As above. ALLERGIES: MACROLIDE, PEACH. KEPPRA IS LISTED, BUT THE PATIENT TAKES KEPPRA. PAST SURGICAL HISTORY: None. SOCIAL HISTORY: Nonsmoker, nondrinker. The patient lives with her parents. PHYSICAL EXAMINATION: On examination, I witnessed 2 seizures, lasting about 5 seconds each, one with eye deviation to the right and some chewing motions of the mouth, another with extension of the arms again lasting seconds. No head drop is noted. The patient is blind and is unable to hear. She res ponds to stimulation with withdrawal. Her head is normocephalic, atraumatic. There is some mild swe lling of the external pinna on the right. Her neck is supple. Trying to obtain a good look at the o ptic nerve is impossible if she develops prompt blepharospasm. When she is not having a focal seizur e, her eye movements are conjugate and roving. No obvious facial asymmetry. She is more contracted in the left upper and left lower than the right. There is marked swelling of the left calf and the l eft thigh and they are tense. She may have some minor tenderness or elicit some pain to palpation of that limb. Reflexes are symmetric. Toes are bilaterally withdrawal. Cerebellar sensory is not lissa table. IMPRESSION AND PLAN: Increased pattern of seizures, likely multifactorial. The patient is on Cipro, which has a minor risk of increasing seizures and would recommend discontinuing. Increase Keppra to 1500 mg b.i.d. Give Keppra 500 mg intravenously x1. For the next 2 days, give clonazepam 1 mg daily . Repeat EEG in the morning. We will follow with you. Job ID: [id number]
[2021-12-09] MEDS: HEPARIN SODIUM/DEXTROSE 25,000 UNITS/500 ML BAG IV SCH ×2 (00:18→23:01)
[2021-12-09 07:26] LABS: Hematocrit (blood only) 33.8 % (37-47); Hemoglobin 11.3 g/dL (12.0-16.0)
[2021-12-09 07:56] LABS: Partial Thromboplastin Ratio 1.8
[2021-12-09 07:58] LABS: Partial Thromboplastin Time 47.2 Seconds (21.0-31.0)
[2021-12-09 08:04] LABS: Magnesium 1.9 mg/dl (1.7-2.4); Phosphorus 2.3 mg/dl (2.5-4.9); Potassium 4.1 mmol/L (3.5-5.1)
[2021-12-09] MEDS: POLYETHYLENE (MIRALAX) 17 GM PACK PO SCH (08:19)
[2021-12-09] MEDS: levETIRAcetam 500 MG TAB PO SCH ×2 (08:19→17:04)
[2021-12-09] MEDS: POT PHOSPHATE MONOBASIC W/ SOD TAB PO SCH ×4 (09:50→20:31)
--- NOTE | 2021-12-09 11:36 | Neurology Progress Note ---
Date of Service December 09, 2021 Assessment & Plan (1) Seizure: Plan: 1. Keppra 1250 mg in am and 1500 mg in pm twice was increased to 1500 mg twice daily 2. continue phenobarbital 64.8 mg BID in psite of elevated level. Pt typically runs a high level 3. increase clonazepam from prn to daily for now 4. dose not driving , no heights, no bathing or swimming alone 5. Vimpat 200 mg IV now and 100 mg po every 12hours if awake or if drowsy give IV 6. if seizure do not stop may need to transfer to [facility] for further monitoring (2) Pulmonary emboli: Plan: 1. treatment per primary team Admission and Anticipated Discharge Date Admission Date: December 07, 2021 Supervising Physician Co-Signing Physician Notes I have seen and discussed above patient with Dr Constance Thomas, neurology. Patient seen and examined phenobarb was held earlier today due to elevated level of 55. When nursing contacted me regarding multiple seizures morning dose was given. On today's exam she is awake and more alert. There is less swelling below the knee on the left and some left knee swelling as well as tenderness the left thigh is less tense. At least 2 partial complex seizures were noted which were brief lasting probably 20 seconds. The patient's neck is supple no sinus tenderness is noted her right external pinna is only marginally swollen but not red Impression this patient has Abilio-Gastaut and control was difficult to achieve but the patient by report has not had any seizures for several years. The escalation of seizures may be due to her recent otitis externa and use of Cipro has now been stopped. Additionally the medical illness DVT PE may be etiologic. I see no evidence of a primary brain event such as meningeal process. Have elected to place her on Vimpat. Baseline QTC is normal. If ongoing seizures patient should be transferred to [facility] for seizure monitoring. Fortunately EEG earlier today did not capture any seizure and certainly did not suggest subclinical status epilepticus. Constance Sahu is a 41 year old female with PMH-CP, cortical blindness, cortical deafness, herpes simplex encephalitis at age 9-month, scoliosis and seizure disorder [patient of Dr. Figueroa] presented to our ED 12/07 with complaint of acute onset swelling of left lower extremity. Her parents noticed acute swelling of her left lower extremity on the morning of 12/07/21 and was brought to [facility] ED. She had right ear swelling and was started on ciprofloxacin on October and patient has been having more seizures and becoming less active since then. At baseline she gets on her knees and moves around the padded areas in her room, rest of the time she is wheelchair-bound. But after starting ciprofloxacin, patient had had more seizures and had become less active. She is also getting constipated lately; both of them after starting ciprofloxacin in October 30. She is swallowing okay and likes oatmeal/soft consistency diet/applesauce. Review of Systems Review of Systems: Other unable due to NIGHTMUTE Physical Exam Physical Exam: Physical Exam: Constitutional: appearance unkept very [place]IGHT[place] Ears, Nose, Mouth and Throat: mucous membranes moist, no injection and skin normal, eyes normal Cardiovascular: normal S-1 and S-2 and regular rate and rhythm Respiratory: normal respiratory effort Musculoskeletal: no peripheral edema Skin: no stigmata of neurocutaneous disease noted and normal and intact Eyes: extraocular muscles intact (EOMI) NEUROLOGIC EXAMINATION: Mental status: Alert and interactive Oriented to person Speech dysarthric, ataxic Cranial Nerves unable to fully assess Reflexes: upgoing toes Sensory: to light and cool touch Coordination: finger to nose Gait/Stance: Posture very unsteady gait unable to balance 2 assist getting out of bed Motor: able to hold hands in air Strength: right hand teaching assistant biceps triceps 4+/5, hip flex bilaterally 4+/5, up going toes [facility] Vital Signs (Past 12 Hours) Vital Signs Temp Pulse Pulse Pulse Resp BP Pulse Ox 12/09/21 11:24 37.1 C 119 H 17 114/80 97 12/09/21 08:00 117 H 12/09/21 07:28 37.5 C 118 H 19 104/70 98 12/09/21 03:43 36.8 C 118 H 18 109/78 97 Laboratory Results Abnormal lab results 12/08/21 12/09/21 12/09/21 Range/Units 12:40 07:09 07:09 Hgb (12.0-16.0) g/dL Hct (37-47) % APTT 47.2 H* (21.0-31.0) Seconds Phosphorus 2.3 L (2.5-4.9) mg/dl Phenobarbital 55.8 H* (10-40) mcg/ml 12/09/21 12/09/21 Range/Units 07:09 08:46 Hgb 11.3 L (12.0-16.0) g/dL Hct 33.8 L (37-47) % APTT (21.0-31.0) Seconds Phosphorus (2.5-4.9) mg/dl Phenobarbital 48.0 H (10-40) mcg/ml Diagnostic Findings EEG- abnormal EEG with generalized slowing of all background rhythms consistent with a nonspecific and possibly postictal encephalopathy possibly baseline in light of this patient's clinical status. In addition there is evidence for potentially epileptogenic activity occurring maximally in the right mid temporal region with occasional single activity left mid temporal region. No sustained electrographic seizure activity is seen. There is thus no evidence for electrographic status epilepticus (1) Pulmonary emboli Pulmonary embolism type: multiple subsegmental (without acute cor pulmonale) Qualified Code(s): I26.94 - Multiple subsegmental pulmonary emboli without acute cor pulmonale
[2021-12-09] MEDS ORDERED: PHENobarbitaL 30 MG TAB PO STA (13:17)
[2021-12-09] MEDS: oxyCODONE/ACETAMINOPHEN 5mg/325mg TAB PO PRN (13:23)
--- NOTE | 2021-12-09 15:10 | Hospitalist Progress Note ---
Date of Service December 09, 2021 Assessment & Plan (1) Pulmonary emboli: (2) Developmental delay, profound: Plan: #. B/L PE d/t LLE DVT #. LLE DVT Patient presented with acute swelling of left lower extremity Admitting LLE venous Doppler positive for DVT Admitting CTA chest: Positive for extensive bilateral PE with mild right-sided heart strain. Admitting troponin elevated at 0.06, flat trended. Admitting ECHO with EF of >70% and grossly normal RV systolic function. Patient is started on heparin drip in the ED, continue with same. Family wants to go ahead with eliquis as long as it is supported by her insurance, will send the prescription, await cost. #. Increased seizures Parents report that patient has increased seizures since after starting ciprofloxacin for otitis externa right side on October 30, 2021 They do not want ciprofloxacin to be continued while inpatient. Cipro DC'd. F/u with OP ENT for f/u on Otitis Externa. Per the parents, 3-4 seizures per week is normal for the patient but patient had 30 seizures on the day of arrival. Admitting CT head: No new acute findings. 12/08 EEG: reviewed. abnormal EEG Keppra dose increased 1.5 g BID Klonopin daily for now. Pt eating less than her baseline per parents, will continue with gentle ivf #. History of cerebral palsy #. Developmental delay #. Failure to thrive Patient has history of cerebral palsy, at baseline gets on her knees in the padded areas of her home, wheelchair-bound other times Patient is on soft diet, likes oatmeal, BMI 16.6 at presentation, dietary consult - recs appreciated. DNR/DNI Patient on heparin drip for PE, need to transition to oral. awating cost for eliquis. Disposition: PCU telemetry. Admission and Anticipated Discharge Date Admission Date: December 07, 2021 Subjective Patient seen and examined at bedside as a follow-up for massive bilateral PE and increased seizures. Patient is cortical deaf and cortical blind. Patient has history of cerebral palsy. Patient lying in bed, sleeping, not in acute distress, on room air.Had one episode of seizure at bedside exam, that lasted for 10 seconds. ROS n/a. Physical Exam Physical Exam: GENERAL: sleeping, couldn't hear, spastic hands and feet, lean and thin appearance HEENT: No pallor, no icterus. Pupils equal, round and reactive to light. Oral mucosa moist. NECK: No JVD, no neck masses. HEART: S1 and S2 heard. Regular rate and rhythm. No murmur, no gallop. RESPIRATORY SYSTEM: No accessory muscle use. No wheezing, no crackles. ABDOMEN: Soft, bowel sounds present, nontender, no distention. CENTRAL NERVOUS SYSTEM: No facial droop. EXTREMITIES: LLE swelling/warm with improving erythema seen. RLE thin and no edema. Pt moving extremities Results & Data Results & Data ([facility]) Vital Signs (Past 12 Hours) Vital Signs Temp Pulse Pulse Pulse Resp BP Pulse Ox 12/09/21 11:24 37.1 C 119 H 17 114/80 97 12/09/21 08:00 117 H 12/09/21 07:28 37.5 C 118 H 19 104/70 98 12/09/21 03:43 36.8 C 118 H 18 109/78 97 (1) Pulmonary emboli Pulmonary embolism type: multiple subsegmental (without acute cor pulmonale) Qualified Code(s): I26.94 - Multiple subsegmental pulmonary emboli without acute cor pulmonale
[2021-12-09] MEDS: SODIUM CHLORIDE 0.9% 1000ML 1,000 ML IV SCH (15:43)
[2021-12-09] MEDS ORDERED: ACETAMINOPHEN 500 MG TAB PO PRN (15:53)
[2021-12-09] MEDS ORDERED: PIPERACILL/TAZOBAC CONSULT ACTIVE PRN (16:06)
[2021-12-09] MEDS ORDERED: LACOSAMIDE 200 MG in SODIUM CHLORIDE 0.9% 50 ML IV ONE (16:15)
[2021-12-09] MEDS ORDERED: PIPERACILLIN/TAZOBACTAM 3.375 GM in DEXTROSE 5% 100 ML IV ONE (16:30)
[2021-12-09 16:35] LABS: Hematocrit (blood only) 34.1 % (37-47); Hemoglobin 11.2 g/dL (12.0-16.0); Mean Corpuscular Hgb Conc 32.8 g/dL (32-36); Mean Corpuscular Volume 100.6 fL (80-100); Mean Platelet Volume 11.4 fL (7.4-10.4); Platelet Count 223 K/uL (130-400); RDW Coefficient of Variation 12.1 % (11.5-14.5); RDW Standard Deviation 44.1 fL (36.4-46.3); Red Blood Count 3.39 M/uL (4.2-5.4); White Blood Count 8.77 K/uL (4.8-10.8)
[2021-12-09] MEDS: clonazePAM 1 MG TAB PO SCH (17:08)
--- NOTE | 2021-12-09 17:08 | XRay Report ---
XR knee LT 3V CLINICAL HISTORY: r/o infection COMPARISON: Left lower extremity venous Doppler ultrasound December 07, 2021. FINDINGS: Alignment of left knee is anatomic. There is suspected osteopenia. No acute fracture is pr esent. There is no evidence for acute osteomyelitis. Soft tissue swelling of the left knee is noted. Particularly, infrapatellar soft tissue swelling is present. Chronic deformity of the left tibia is n oted. There is no joint effusion. No soft tissue gas. Radiography. IMPRESSION: 1. No acute fracture. No joint effusion. No evidence for acute osteomyelitis by radiography. 2. Left knee soft tissue swelling, as above. This could reflect edema or cellulitis. ACT 112: Negative or not required by law. Electronically signed by: Jeremiah Duarte M.D. 12/09/2021 5:07 PM
[2021-12-09 17:12] LABS: Basophils # (auto) 0.01 K/uL (0-0.2); Basophils % (auto) 0.1 %; Eosinophils # (auto) 0.01 K/uL (0-0.5); Eosinophils % (auto) 0.1 %; Immature Granulocytes # (auto) 0.02 K/uL (0.00-0.02); Immature Granulocytes % (auto) 0.2 %; Lymphocytes # (auto) 1.55 K/uL (1.2-3.4); Lymphocytes % (auto) 17.7 %; Monocytes % (auto) 9.1 %; Neutrophils # (auto) 6.38 K/uL (1.4-6.5); Neutrophils % (auto) 72.8 %
--- NOTE | 2021-12-09 21:30 | Electroencephalogram ---
EEG Procedure Note Date of Service December 09, 2021 Start / End Times Start Time: 0736 End Time: [address] 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 EEG performed for evauation of seizures. Home Medication List Medication Instructions Recorded Confirmed Type ciprofloxacin HCl 250 mg tablet 250 mg PO BID 12/07/21 12/07/21 History clonazepam 2 mg disintegrating 1 mg PO DAILY PRN 12/07/21 12/07/21 History tablet desonide 0.05 % topical cream 1 applic TOPICAL DAILY PRN 12/07/21 12/07/21 History levetiracetam 1,000 mg tablet See Rx Instructions .ROUTE .COMPLEX 12/07/21 12/07/21 History levetiracetam 250 mg tablet See Rx Instructions .ROUTE .COMPLEX 12/07/21 12/07/21 History phenobarbital 32.4 mg tablet 64.8 mg PO BID 12/07/21 12/07/21 History apixaban 5 mg (74 tabs) tablets in 5 mg PO Q12H #74 ea 12/09/21 Rx a dose pack (Eliquis) Inpatient Medication List Acetaminophen (Acetaminophen 500 Mg Tab) 500 mg PO Q4H PRN PRN Reason: Fever Stop: 01/08/22 15:52 Last Admin: 12/09/21 16:20 Dose: 500 mg Documented by: [id number] Heparin Sodium/Dextrose (Heparin Sodium/Dextrose) 25,000 units in 500 mls @ 14 mls/hr IV .Q24H GINA; Protocol Stop: 01/06/22 15:44 Last Admin: 12/09/21 00:18 Dose: 700 units/hr, 14 mls/hr Documented by: [id number] Cosigned by: [id number] Titration: 12/09/21 00:18 Dose: 700 units/hr, 14 mls/hr Documented by: [id number] Cosigned by: [id number] Admin: 12/07/21 16:31 Dose: 700 units/hr, 14 mls/hr Documented by: [id number] Cosigned by: [id number] Sodium Chloride (Nss 1000ml) 1,000 mls @ 50 mls/hr IV .Q20H GINA Stop: 12/11/21 07:14 Last Admin: 12/09/21 15:43 Dose: 50 mls/hr Documented by: [id number] Levetiracetam (Levetiracetam 500 Mg Tab) 1,500 mg PO BIDM [facility] Stop: 01/08/22 07:59 Last Admin: 12/09/21 17:04 Dose: 1,500 mg Documented by: [id number] Admin: 12/09/21 08:19 Dose: 1,500 mg Documented by: [id number] Oxycodone/Acetaminophen (Oxycodone/Acetaminophen 5mg/325mg Tab) 1 tab PO Q12H PRN PRN Reason: Pain Stop: 12/22/21 16:32 Last Admin: 12/09/21 13:23 Dose: 1 tab Documented by: [id number] Admin: 12/08/21 16:53 Dose: 1 tab Documented by: [id number] Polyethylene Glycol (Polyethylene (Miralax) 17 Gm Pack) 8.5 gm PO DAILY [facility] Stop: 01/07/22 08:59 Last Admin: 12/09/21 08:19 Dose: 8.5 gm Documented by: [id number] Admin: 12/08/21 07:56 Dose: 8.5 gm Documented by: [id number] Discontinued Medications Clonazepam (Clonazepam 1 Mg Tab) 1 mg PO DAILY@1800 [facility] Stop: 12/09/21 18:01 Last Admin: 12/09/21 17:08 Dose: 1 mg Documented by: [id number] Admin: 12/08/21 18:09 Dose: 1 mg Documented by: [id number] Heparin Sodium (Porcine) (Heparin Sod (Porcine) 1000 Unit/Ml) 1 units IV NOW ONE Stop: 12/07/21 15:46 Last Admin: 12/07/21 16:30 Dose: 3,000 units Documented by: [id number] Cosigned by: [id number] Heparin Sodium/Dextrose (Heparin Iv Adult Wt-Based Standard With Bolus Protocol) 1 ea IV NOW STA; Protocol Stop: 12/07/21 15:31 Last Admin: 12/07/21 16:35 Dose: 1 ea Documented by: [id number] Sodium Chloride (Nss 1000ml) 1,000 mls @ 999 mls/hr IV .Q1H1M ONE Stop: 12/07/21 13:56 Last Infusion: 12/07/21 14:25 Dose: 0 mls/hr Documented by: [id number] Admin: 12/07/21 13:24 Dose: 999 mls/hr Documented by: [id number] Sodium Chloride (Nss) 500 mls @ 100 mls/hr IV .Q5H GINA Stop: 01/06/22 16:14 Last Admin: 12/08/21 13:43 Dose: Not Given Documented by: [id number] Infusion: 12/07/21 22:30 Dose: 0 mls/hr Documented by: [id number] Admin: 12/07/21 16:35 Dose: 100 mls/hr Documented by: [id number] Sodium Chloride (1/2 Nss) 1,000 mls @ 80 mls/hr IV .[id number] ONE Stop: 12/08/21 11:32 Last Infusion: 12/08/21 08:18 Dose: 0 mls/hr Documented by: [id number] Admin: 12/07/21 23:07 Dose: 80 mls/hr Documented by: [id number] Potassium Chloride (K Cj / Wtr) 10 meq in 100 mls @ 100 mls/hr IV Q1H IGNA; Protocol Stop: 12/08/21 11:59 Last Infusion: 12/08/21 12:16 Dose: 0 mls/hr Documented by: [id number] Admin: 12/08/21 11:11 Dose: 100 mls/hr Documented by: [id number] Infusion: 12/08/21 11:07 Dose: 100 mls/hr Documented by: [id number] Admin: 12/08/21 10:07 Dose: 100 mls/hr Documented by: [id number] Potassium Phosphate 15 mmol/ (Dextrose) 255 mls @ 102 mls/hr IV NOW ONE Stop: 12/08/21 11:59 Last Infusion: 12/08/21 14:33 Dose: 0 mls/hr Documented by: [id number] Admin: 12/08/21 12:13 Dose: 102 mls/hr Documented by: [id number] Levetiracetam 500 mg/ Sodium (Chloride) 105 mls @ 420 mls/hr IV ONE ONE Stop: 12/08/21 18:14 Last Infusion: 12/08/21 21:25 Dose: 0 mls/hr Documented by: [id number] Admin: 12/08/21 20:50 Dose: 420 mls/hr Documented by: [id number] Lacosamide 200 mg/ Sodium (Chloride) 70 mls @ 140 mls/hr IV NOW ONE Stop: 12/09/21 16:44 Last Infusion: 12/09/21 17:01 Dose: 0 mls/hr Documented by: [id number] Admin: 12/09/21 16:24 Dose: 140 mls/hr Documented by: [id number] Piperacillin Sod/Tazobactam (Sod 3.375 gm/ Dextrose) 115 mls @ 230 mls/hr IV ONE ONE; Protocol Stop: 12/09/21 16:59 Last Infusion: 12/09/21 17:53 Dose: 0 mls/hr Documented by: [id number] Admin: 12/09/21 17:02 Dose: 230 mls/hr Documented by: [id number] Ioversol (Optiray 320 125ml) 110 ml IV ONCE ONE Stop: 12/07/21 15:16 Last Admin: 12/07/21 15:16 Dose: 110 ml Documented by: [id number] Levetiracetam (Levetiracetam 250 Mg Tab) 250 mg PO QDB [facility] Stop: 01/07/22 07:29 Last Admin: 12/08/21 07:56 Dose: 250 mg Documented by: [id number] Levetiracetam (Levetiracetam 500 Mg Tab) 1,000 mg PO QDB [facility] Stop: 01/07/22 07:29 Last Admin: 12/08/21 07:56 Dose: 1,000 mg Documented by: [id number] Levetiracetam (Levetiracetam 500 Mg Tab) 1,500 mg PO QDD [facility] Stop: 01/07/22 16:29 Last Admin: 12/08/21 16:54 Dose: 1,500 mg Documented by: [id number] Lorazepam (Lorazepam 2 Mg/1 Ml Vial) 0.25 mg IV NOW STA Stop: 12/07/21 14:23 Last Admin: 12/07/21 14:35 Dose: 0.25 mg Documented by: [id number] Phenobarbital (Phenobarbital 32.4 Mg Tab) 97.2 mg PO HS [facility] Stop: 01/06/22 20:59 Last Admin: 12/08/21 13:43 Dose: Not Given Documented by: [id number] Phenobarbital (Phenobarbital 32.4 Mg Tab) 64.8 mg PO BID [facility] Stop: 01/06/22 22:29 Last Admin: 12/08/21 07:56 Dose: 64.8 mg Documented by: [id number] Admin: 12/07/21 23:05 Dose: 64.8 mg Documented by: [id number] Phenobarbital (Phenobarbital 32.4 Mg Tab) 64.8 mg PO NOW STA Stop: 12/09/21 13:18 Last Admin: 12/09/21 14:56 Dose: 64.8 mg Documented by: [id number] Potassium Phosphate (Pot Phosphate Monobasic W/ Sod Tab) 2 tab PO QID [facility] Stop: 12/09/21 21:01 Last Admin: 12/09/21 20:31 Dose: 2 tab Documented by: [id number] Admin: 12/09/21 17:04 Dose: 2 tab Documented by: [id number] Admin: 12/09/21 13:23 Dose: 2 tab Documented by: [id number] Admin: 12/09/21 09:50 Dose: 2 tab Documented by: [id number] Description This is a 21 electrode EEG with a single channel dedicated to limited EKG. The electrodes were placed in accordance with the International 10-20 system. REPORT: At the onset of the EEG the patient is in an altered mental state. The back ground is asymmetric with loss of the normal anterior to posterior gradient. There is focal suppression in the bilateral posterior head regions. Anterioraly the background consistent of theta activity with some intermixed faster frequencies. There is occasional independent bifrontal sharp waves. No stage II sleep trasients are seen. Interpretation IMPRESSION: This is an abnormal routine EEG in a patient with altered mentation due to 1. Intermittent independent bifrontal sharp waves suggestive of predisposition for seizures, 2. Focal suppression in the bilateral posterior head regions suggestive of underlying structural abnormality, 3. Generalized background slowing suggestive of non specific encephalopathy. No electrographic seizures are seen.
[2021-12-09] MEDS: PIPERACILLIN/TAZOBACTAM 3.375 GM in DEXTROSE 5% 100 ML IV SCH (22:22)
[2021-12-10] MEDS: PIPERACILLIN/TAZOBACTAM 3.375 GM in DEXTROSE 5% 100 ML IV SCH (05:47)
[2021-12-10] MEDS ORDERED: LACOSAMIDE 100 MG in SODIUM CHLORIDE 0.9% 50 ML IV PRN (06:00)
[2021-12-10] MEDS: LACOSAMIDE 50 MG TABLET PO SCH ×2 (06:33→16:49)
[2021-12-10] MEDS: levETIRAcetam 500 MG TAB PO SCH ×2 (07:57→16:16)
[2021-12-10] MEDS: POLYETHYLENE (MIRALAX) 17 GM PACK PO SCH (07:57)
[2021-12-10 08:12] LABS: Partial Thromboplastin Ratio 2.1
[2021-12-10 08:13] LABS: Partial Thromboplastin Time 58.2 Seconds (21.0-31.0)
[2021-12-10 08:19] LABS: Magnesium 1.6 mg/dl (1.7-2.4); Phosphorus 2.8 mg/dl (2.5-4.9); Potassium 3.3 mmol/L (3.5-5.1)
[2021-12-10] MEDS: PHENobarbitaL 30 MG TAB PO SCH ×2 (11:22→20:00)
[2021-12-10] MEDS ORDERED: POTASSIUM CHLORIDE 20 MEQ/15 ML UDC PO ONE (11:39)
--- NOTE | 2021-12-10 11:46 | Discharge Summary ---
Date of Service December 10, 2021 Admission HPI Per Admitting Provider 41-year-old female with PMH of cerebral palsy, cortical blindness, cortical deafness, herpes simplex encephalitis at age 9-month, scoliosis and seizure disorder [patient of Dr. Figueroa] presented to our ED 12/07 with complaint of acute onset swelling of left lower extremity. Patient is cortical blind and cortical deaf, history received from records and from her parents at bedside. Per patient's parent, they noticed acute swelling of her left lower extremity on the morning of the day of her arrival, it was not like this the evening prior. On the background, patient had right ear swelling and was started on ciprof loxacin on October and patient has been having more seizures and becoming less active since then. At baseline she gets on her knees and moves around the padded areas in her room, rest of the time she is wheelchair-bound. But after starting ciprofloxacin, patient had had more seizures and had become less active. Per parents, patient did not have any fever but is having more seizures, is getting constipated lately; both of them after starting ciprofloxacin in October 30. They report patient swallow okay. Patient likes oatmeal/soft consistency diet/applesauce. Definitely no questions of his smoking/alcohol/recreational drugs. DNR/DNI per patient parents. Admission Exam (Per Admitting) Neck GENERAL: sleeping, couldn't hear, curled up, spastic hands and feet, lean and thin appearance HEENT: No pallor, no icterus. Pupils equal, round and reactive to light. Oral mucosa moist. NECK: No JVD, no neck masses. HEART: S1 and S2 heard. Regular rate and rhythm. No murmur, no gallop. RESPIRATORY SYSTEM: No accessory muscle use. No wheezing, no crackles. ABDOMEN: Soft, bowel sounds present, nontender, no distention. CENTRAL NERVOUS SYSTEM: No facial droop. EXTREMITIES: LLE swelling/warm with minimal erythema seen. RLE thin and no edema. Pt moved extremities Discharge Data Consultations 12/07/21 16:20 ED Decision to Admit Stat 12/07/21 18:07 Consult Neurology Routine Current Diagnoses Multiple subsegmental pulmonary emboli without acute cor pulmonale (12/07/21) Unspecified convulsions (12/07/21) Unspecified lack of expected normal physiological development in childhood (12/07/21) Allergies peach Allergy (Unknown, Verified 12/08/21 15:06) Rash Macrolide Antibiotics Adverse Reaction (Severe, Unverified 12/07/21 14:48) Rash Height/Weight/Isolation Height 5 ft Weight 31.116 kg Chemistry 12/09/21 12/10/21 07:09 07:19 Potassium 4.1 D 3.3 L Microbiology 12/09/21 16:09 Blood Aerobic Blood Culture - Pending 12/09/21 16:09 Blood Anaerobic Blood Culture - Pending 12/09/21 16:08 Blood Aerobic Blood Culture - Pending 12/09/21 16:08 Blood Anaerobic Blood Culture - Pending 12/07/21 12:20 Blood Aerobic Blood Culture - Preliminary No growth in Aerobic bottle after 48 hours. 12/07/21 12:20 Blood Anaerobic Blood Culture - Final 12/07/21 12:34 Blood Aerobic Blood Culture - Preliminary No growth in Aerobic bottle after 48 hours. 12/07/21 12:34 Blood Anaerobic Blood Culture - Preliminary No growth in Anaerobic bottle after 48 hours. 12/07/21 14:15 Urine,Clean Catch Urine Culture - Final Gardnerella-like bacilli Hospital Course (1) Pulmonary emboli: (2) Developmental delay, profound: #. B/L PE d/t LLE DVT #. LLE DVT Patient presented with acute swelling of left lower extremity Admitting LLE venous Doppler positive for DVT Admitting CTA chest: Positive for extensive bilateral PE with mild right-sided heart strain. Admitting troponin elevated at 0.06, flat trended. Admitting ECHO with EF of >70% and grossly normal RV systolic function. Patient is started on heparin drip in the ED, continue with same. Warfarin on DC #. Increased seizures Parents report that patient has increased seizures since after starting ciprofloxacin for otitis externa right side on October 30, 2021 They do not want ciprofloxacin to be continued while inpatient. Cipro DC'd. F/u with [facility] ENT for f/u on Otitis Externa. Per the parents, 3-4 seizures per week is normal for the patient but patient had 30 seizures on the day of arrival. Admitting CT head: No new acute findings. 12/08 EEG: reviewed. abnormal EEG Keppra dose increased 1.5 g BID Klonopin daily for now. Pt eating less than her baseline per parents, will continue with gentle ivf #. History of cerebral palsy #. Developmental delay #. Failure to thrive Patient has history of cerebral palsy, at baseline gets on her knees in the padded areas of her home, wheelchair-bound other times Patient is on soft diet, likes oatmeal, BMI 16.6 at presentation, dietary consult - recs appreciated. DNR/DNI Patient on heparin drip for PE, need to transition to oral. awating cost for eliquis. Disposition: DC home after K and Mg in. GENERAL: sleeping, couldn't hear, curled up, spastic hands and feet, lean and thin appearance HEENT: No pallor, no icterus. Pupils equal, round and reactive to light. Oral mucosa moist. NECK: No JVD, no neck masses. HEART: S1 and S2 heard. Regular rate and rhythm. No murmur, no gallop. RESPIRATORY SYSTEM: No accessory muscle use. No wheezing, no crackles. ABDOMEN: Soft, bowel sounds present, nontender, no distention. CENTRAL NERVOUS SYSTEM: No facial droop. EXTREMITIES: LLE swelling improved per Father. RLE thin and no edema. Pt moved extremities Discharge Instructions Need to do Warfarin Bridge on DC
[2021-12-10] MEDS: MAGNESIUM SULFATE / D5W 1 GM/100 ML BAG IV SCH ×2 (11:49→13:37)
--- NOTE | 2021-12-10 11:57 | Hospitalist Progress Note ---
Date of Service December 10, 2021 Assessment & Plan (1) Pulmonary emboli: (2) Developmental delay, profound: Plan: #. B/L PE d/t LLE DVT #. LLE DVT Patient presented with acute swelling of left lower extremity Admitting LLE venous Doppler positive for DVT Admitting CTA chest: Positive for extensive bilateral PE with mild right-sided heart strain. Admitting troponin elevated at 0.06, flat trended. Admitting ECHO with EF of >70% and grossly normal RV systolic function. Patient is started on heparin drip in the ED, continue with same. Start Warfarin. Warfarin on DC #. Increased seizures Parents report that patient has increased seizures since after starting ciprofloxacin for otitis externa right side on October 30, 2021 They do not want ciprofloxacin to be continued while inpatient. Cipro DC'd. Start Ceftin, F/u with OP ENT for f/u on Otitis Externa. Per the parents, 3-4 seizures per week is normal for the patient but patient had 30 seizures on the day of arrival. Admitting CT head: No new acute findings. 12/08 EEG: reviewed. abnormal EEG Keppra dose increased 1.5 g BID Klonopin daily for now. Pt eating less than her baseline per parents, will continue with gentle ivf #. History of cerebral palsy #. Developmental delay #. Failure to thrive Patient has history of cerebral palsy, at baseline gets on her knees in the padded areas of her home, wheelchair-bound other times Patient is on soft diet, likes oatmeal, BMI 16.6 at presentation, dietary consult - recs appreciated. DNR/DNI Patient on heparin drip for PE, need to transition to Warfarin, Severe interaction w Eliquis and Xarelto Disposition: DC home when INR >= 2 or on Lovenox bridge GENERAL: sleeping, couldn't hear, curled up, spastic hands and feet, lean and thin appearance HEENT: No pallor, no icterus. Pupils equal, round and reactive to light. Oral mucosa moist. NECK: No JVD, no neck masses. HEART: S1 and S2 heard. Regular rate and rhythm. No murmur, no gallop. RESPIRATORY SYSTEM: No accessory muscle use. No wheezing, no crackles. ABDOMEN: Soft, bowel sounds present, nontender, no distention. CENTRAL NERVOUS SYSTEM: No facial droop. EXTREMITIES: LLE swelling improved per Father. RLE thin and no edema. Pt moved extremities Admission and Anticipated Discharge Date Admission Date: December 07, 2021 Subjective Patient seen and examined at bedside as a follow-up for massive bilateral PE and increased seizures. Patient is cortical deaf and cortical blind. Patient has history of cerebral palsy. Patient lying in bed, sleeping, not in acute distress, on room air.Had one episode of seizure at bedside exam, that lasted for 10 seconds. ROS n/a. Results & Data Results & Data ([facility]) Vital Signs (Past 12 Hours) Vital Signs Temp Pulse Pulse Resp BP BP BP 12/10/21 10:59 36.9 C 110 H 18 110/77 12/10/21 08:01 37 C 103 H 16 113/80 12/10/21 03:00 36.5 C 91 H 18 98/65 L 12/10/21 00:01 96/65 L Pulse Ox 12/10/21 10:59 95 12/10/21 08:01 96 12/10/21 03:00 97 12/10/21 00:01 (1) Pulmonary emboli Pulmonary embolism type: multiple subsegmental (without acute cor pulmonale) Qualified Code(s): I26.94 - Multiple subsegmental pulmonary emboli without acute cor pulmonale
[2021-12-10] MEDS: HEPARIN SODIUM/DEXTROSE 25,000 UNITS/500 ML BAG IV SCH (12:11)
[2021-12-10 12:33] LABS: INR 1.2 (0.9-1.1); Prothrombin Time 12.4 Seconds (9.0-12.0)
--- NOTE | 2021-12-10 13:03 | Neurology Progress Note ---
Date of Service December 10, 2021 Assessment & Plan (1) Seizure: Plan: 1. Keppra 1250 mg in am and 1500 mg in pm twice was increased to 1500 mg twice daily 2. continue phenobarbital 64.8 mg BID inspite of elevated level. Pt typically runs a high level 3. increase clonazepam from prn to daily for now 4. dose not driving , no heights, no bathing or swimming alone 5. Vimpat 200 mg IV given yesterdayand 100 mg po every 12hours if awake or if drowsy give IV 6. will follow up by phone contact with Dr Figueroa - neurology will arrange. 7. ok to discharge when medically stable 8. will need EKG to watch the QT due to the addition of Vimpat. defer to hospitalist (2) Pulmonary emboli: Plan: 1. treatment per primary team 2. plan is to continue heparin and start coumadin. will likely transition to lo venox to home Admission and Anticipated Discharge Date Admission Date: December 07, 2021 Supervising Physician Co-Signing Physician Notes I have seen and discussed above patient with Dr Constance Thomas, neurology. Patient seen and examined. She has perhaps had 5 or 6 very brief partial complex seizures today not witnessed by myself. She seems to be tolerating the Vimpat well. Her mother indicates that she is sleeping a little bit more than she had yesterday but when awake is at her baseline. On exam the patient is awake eye movements are conjugate and roving there is quadriparesis left greater than right with increased tone left greater than right. Patient is mute Impression [place] escalation of seizure related to illness continue Vimpat 100 mg twice daily recommend EKG as a follow-up to assess for prolongation of QT. Continue current dose of Keppra as well as phenobarbital. Dr. Figueroa may want to attempt to taper as an outpatient once she is stable. We will follow with you Subjective Adelina is a 41 year old female with PMH-CP, cortical blindness, cortical deafness, herpes simplex encephalitis at age 9-month, scoliosis and seizure disorder [patient of Dr. Figueroa] presented to our ED 12/07 with complaint of acute onset swelling of left lower extremity. Her parents noticed acute swelling of her left lower extremity on the morning of 12/07/21 and was brought to [facility] ED. She had right ear swelling and was started on ciprofloxacin on October and patient has been having more seizures and becoming less active since then. At baseline she gets on her knees and moves around the padded areas in her room, rest of the time she is wheelchair-bound. But after starting ciprofloxacin, patient had had more seizures and had become less active. She is also getting constipated lately; both of them after starting ciprofloxacin in October 30. She is swallowing okay and likes oatmeal/soft consistency diet/applesauce. She was still having a fever and multiple seizure per hour. Vimpat was started IV 200 mg and she will maintain on 100 mg every 12 hours. Her mother is bedside and states the seizure are much less than yesterday. She will be starting Coumadin and continue heparin until coumadin is therapeutic. May transition to lovenox. Review of Systems Review of Systems: Unobtainable due to cognitive status Physical Exam Physical Exam: Physical Exam: Constitutional: lying in bed, no seizures seen during exam Cardiovascular: normal S-1 and S-2 and regular rate and rhythm Respiratory: normal respiratory effort Musculoskeletal: left LE edema Skin: LE left edema, erythema decreased , less tender to touch Eyes: closes eye with attempt to evaluate pupils NEUROLOGIC EXAMINATION: Mental status: calm Speech does not speak Cranial Nerves face appear drawn on one side to the left Sensory: withdraws to touch Coordination: moves minimally spontaneously Gait/Stance: does not walk, arm and LE contracture, left LE edema, erythema, tender Motor: moves spontaneously minimally Strength: unable to assess Results & Data ([facility]) Vital Signs (Past 12 Hours) Vital Signs Temp Pulse Pulse Pulse Resp BP BP 12/10/21 10:59 36.9 C 110 H 18 110/77 12/10/21 08:01 37 C 103 H 16 113/80 12/10/21 08:00 102 H 12/10/21 03:00 36.5 C 91 H 18 98/65 L Pulse Ox 12/10/21 10:59 95 12/10/21 08:01 96 12/10/21 08:00 12/10/21 03:00 97 Laboratory Results Abnormal lab results 12/09/21 12/10/21 12/10/21 Range/Units 15:57 07:19 07:19 RBC 3.39 L (4.2-5.4) M/uL Hgb 11.2 L (12.0-16.0) g/dL Hct 34.1 L (37-47) % MCV 100.6 H (80-100) fL MPV 11.4 H (7.4-10.4) fL [place] # (Auto) 0.80 H (0.11-0.59) K/uL PT (9.0-12.0) Seconds INR (0.9-1.1) APTT 58.2 H* (21.0-31.0) Seconds Potassium 3.3 L (3.5-5.1) mmol/L Magnesium 1.6 L (1.7-2.4) mg/dl 12/10/21 Range/Units 07:19 RBC (4.2-5.4) M/uL Hgb (12.0-16.0) g/dL Hct (37-47) % MCV (80-100) fL MPV (7.4-10.4) fL [place] # (Auto) (0.11-0.59) K/uL PT 12.4 H (9.0-12.0) Seconds INR 1.2 H (0.9-1.1) APTT (21.0-31.0) Seconds Potassium (3.5-5.1) mmol/L Magnesium (1.7-2.4) mg/dl Diagnostic Findings xray left knee-. No acute fracture. No joint effusion. No evidence for acute osteomyelitis by radiography. Left knee soft tissue swelling, as above. This could reflect edema or cellulitis. (1) Pulmonary emboli Pulmonary embolism type: multiple subsegmental (without acute cor pulmonale) Qualified Code(s): I26.94 - Multiple subsegmental pulmonary emboli without acute cor pulmonale
[2021-12-10] MEDS: SODIUM CHLORIDE 0.9% 1000ML 1,000 ML IV SCH (15:37)
[2021-12-10] MEDS ORDERED: WARFARIN SOD 5 MG TAB PO SCH (16:00)
[2021-12-10] MEDS: cefUROXime axetil 500 MG TAB PO SCH (20:00)
[2021-12-10] MEDS ORDERED: ACETAMINOPHEN SUSP 500 MG/15.6 ML UDP PO PRN (23:03)
[2021-12-10] MEDS: ACETAMINOPHEN SUSP 160 MG/5 ML UDC PO PRN (23:35)
[2021-12-11 06:20] LABS: Hematocrit (blood only) 32.8 % (37-47); Hemoglobin 11.1 g/dL (12.0-16.0); Mean Corpuscular Hemoglobin 33.6 pg (25-34); Mean Corpuscular Hgb Conc 33.8 g/dL (32-36); Mean Corpuscular Volume 99.4 fL (80-100); Mean Platelet Volume 10.5 fL (7.4-10.4); Platelet Count 309 K/uL (130-400); RDW Standard Deviation 42.9 fL (36.4-46.3); White Blood Count 8.31 K/uL (4.8-10.8)
[2021-12-11 06:40] LABS: BUN Creatinine Ratio 11.9 (10-20); Calcium 8.2 mg/dl (8.5-10.1); Creatinine Clr Calc Pharmacy 84.8 ml/min; Est GFR (African American) 145.5 ml/min; Est GFR (Non-African American) 125.5 ml/min; Potassium 3.9 mmol/L (3.5-5.1)
[2021-12-11 06:50] LABS: Partial Thromboplastin Ratio 2.3; Prothrombin Time 20.7 Seconds (9.0-12.0)
[2021-12-11 06:55] LABS: Partial Thromboplastin Time 63.6 Seconds (21.0-31.0)
[2021-12-11] MEDS: LACOSAMIDE 50 MG TABLET PO SCH (07:32)
[2021-12-11] MEDS: levETIRAcetam 500 MG TAB PO SCH ×2 (07:33→16:39)
[2021-12-11] MEDS: cefUROXime axetil 500 MG TAB PO SCH (07:33)
[2021-12-11] MEDS: PHENobarbitaL 30 MG TAB PO SCH ×2 (07:34→20:31)
[2021-12-11] MEDS: POLYETHYLENE (MIRALAX) 17 GM PACK PO SCH (07:34)
--- NOTE | 2021-12-11 10:21 | Hospitalist Progress Note ---
Date of Service December 11, 2021 Assessment & Plan (1) Pulmonary emboli: (2) Developmental delay, profound: Plan: #. B/L PE d/t LLE DVT #. LLE DVT Patient presented with acute swelling of left lower extremity Admitting LLE venous Doppler positive for DVT Admitting CTA chest: Positive for extensive bilateral PE with mild right-sided heart strain. Admitting troponin elevated at 0.06, flat trended. Admitting ECHO with EF of >70% and grossly normal RV systolic function. Patient is started on heparin drip in the ED, continue with same. Warfarin on DC #. Increased seizures Parents report that patient has increased seizures since after starting ciprofloxacin for otitis externa right side on October 30, 2021 They do not want ciprofloxacin to be continued while inpatient. Cipro DC'd. F/u with OP ENT for f/u on Otitis Externa. Per the parents, 3-4 seizures per week is normal for the patient but patient had 30 seizures on the day of arrival. Admitting CT head: No new acute findings. 12/08 EEG: reviewed. abnormal EEG Keppra dose increased 1.5 g BID Klonopin daily for now. Pt eating less than her baseline per parents, will continue with gentle ivf #. History of cerebral palsy #. Developmental delay #. Failure to thrive Patient has history of cerebral palsy, at baseline gets on her knees in the padded areas of her home, wheelchair-bound other times Patient is on soft diet, likes oatmeal, BMI 16.6 at presentation, dietary consult - recs appreciated. DNR/DNI Patient on heparin drip for PE, need to transition to oral. awating cost for eliquis. Disposition: DC home after gapped on Warfarin GENERAL: sleeping, couldn't hear, curled up, spastic hands and feet, lean and thin appearance HEENT: No pallor, no icterus. Pupils equal, round and reactive to light. Oral mucosa moist. NECK: No JVD, no neck masses. HEART: S1 and S2 heard. Regular rate and rhythm. No murmur, no gallop. RESPIRATORY SYSTEM: No accessory muscle use. No wheezing, no crackles. ABDOMEN: Soft, bowel sounds present, nontender, no distention. CENTRAL NERVOUS SYSTEM: No facial droop. EXTREMITIES: LLE swelling improved per Father. RLE thin and no edema. Pt moved extremities Admission and Anticipated Discharge Date Admission Date: December 07, 2021 Subjective Patient seen, father at bedside, Case reviewed with father, Patient resting in bed s/p several seizures per Father Results & Data Results & Data ([facility]) Vital Signs (Past 12 Hours) Vital Signs Temp Pulse Pulse Resp BP BP Pulse Ox 12/11/21 08:02 38.0 C H 119 H 21 123/80 95 12/11/21 04:52 36.7 C 107 H 22 127/89 97 12/11/21 00:59 37.2 C 12/10/21 23:59 106 H 12/10/21 22:49 38.8 C H 107 H 18 122/84 96 (1) Pulmonary emboli Pulmonary embolism type: multiple subsegmental (without acute cor pulmonale) Qualified Code(s): I26.94 - Multiple subsegmental pulmonary emboli without acute cor pulmonale
[2021-12-11 13:52] LABS: Appearance Urine Clear (Clear); Bilirubin Urine Negative (Negative); Blood Urine Negative (Negative); Color Urine Yellow; Glucose Urine UA Trace (Negative); Ketones Urine Negative (Negative); Leukocyte Esterase Urine Negative (Negative); Nitrite Urine Negative (Negative); Protein Urine Negative (Negative); Specific Gravity Urine 1.017 (1.000-1.030); Urobilinogen Urine Positive (Negative); pH Urine 6.5 (4.5-7.5)
--- NOTE | 2021-12-11 14:18 | Neurology Progress Note ---
Date of Service December 11, 2021 Assessment & Plan (1) Seizure: Plan: 1. Keppra 1250 mg in am and 1500 mg in pm twice was increased to 1500 mg twice daily 2. continue phenobarbital 64.8 mg BID inspite of elevated level. Pt typically runs a high level 3. increase clonazepam from prn to daily for now 4. follow up with PCP for further medical management 5. Vimpat 100 mg po every 12hours if awake or if drowsy give IV 6. will follow up by phone contact with Dr Figueroa - neurology will arrange. 7. ok to discharge when medically stable 8. will need EKG to watch the QT due to the addition of Vimpat. defer to hospitalist to advise PCP (2) Pulmonary emboli: Plan: 1. treatment per primary team 2. plan is to continue heparin and start coumadin. will likely transition to lovenox to home Admission and Anticipated Discharge Date Admission Date: December 07, 2021 Supervising Physician Co-Signing Physician Notes I have seen and discussed above patient with Dr Constance Thomas, neurology. Patient seen and examined. Patient had 20 seizures today. She had is on the first day of her menstrual cycle and her mother does indicate that she can have a cluster around her menstrual cycle although she has not had seizures for years. She is awake and alert no seizures were noted during my visit eye movements were conjugate roving. All 4 extremities are contracted left greater than right Impression [place]. Patient currently on Keppra 1500 mg twice daily phenobarbital twice daily clonazepam once daily and Vimpat 100 mg twice daily after having been intravenously loaded. Given the 20 partial complex seizures today recommend changing the dose of Vimpat 200 mg in the morning and 200 mg in the evening. I have notified the pharmacy of the change and they will increase the evening dose of Vimpat this evening. EKG, routine to check QT interval. Constance Sahu is a 41 year old female with PMH-CP, cortical blindness, cortical deafness, herpes simplex encephalitis at age 9-month, scoliosis and seizure disorder [patient of Dr. Figueroa] presented to our ED 12/07 with complaint of acute onset swelling of left lower extremity. Her parents noticed acute swelling of her left lower extremity on the morning of 12/07/21 and was brought to [facility] ED. She had right ear swelling and was started on ciprofloxacin on October and patient has been having more seizures and becoming less active since then. At baseline she gets on her knees and moves around the padded areas in her room, rest of the time she is wheelchair-bound. But after starting ciprofloxacin, patient had had more seizures and had become less active. She is also getting constipated lately; both of them after starting ciprofloxacin in October 30. She is swallowing okay and likes oatmeal/soft consistency diet/applesauce. She was still having a fever and multiple seizure per hour. Vimpat was started IV 200 mg and she will maintain on 100 mg every 12 hours. Her mother is bedside. she had a few additional seizure today but she started her menses and that is normal for her. She will be starting Coumadin and continue heparin until coumadin is therapeutic. May transition to lovenox. Review of Systems Review of Systems: Unobtainable due to cognitive status Physical Exam Physical Exam: Physical Exam: Constitutional: lying in bed, no seizures seen during exam Cardiovascular: normal S-1 and S-2 and regular rate and rhythm Respiratory: normal respiratory effort Musculoskeletal: left LE edema Skin: LE left edema, erythema decreased almost resolved , less tender to touch Eyes: closes eye with attempt to evaluate pupils NEUROLOGIC EXAMINATION: Mental status: calm Speech does not speak Cranial Nerves face appear drawn on one side to the left Sensory: withdraws to touch Coordination: moves minimally spontaneously Gait/Stance: does not walk, arm and LE contracture, left LE edema, erythema, tender Motor: moves spontaneously minimally Strength: unable to assess Results & Data ([facility]) Vital Signs (Past 12 Hours) Vital Signs Temp Pulse Pulse Resp BP BP Pulse Ox 12/11/21 13:05 107 H 12/11/21 12:02 38.0 C H 108 H 17 113/80 97 12/11/21 08:02 38.0 C H 119 H 21 123/80 95 12/11/21 08:00 107 H 12/11/21 04:52 36.7 C 107 H 22 127/89 97 Laboratory Results Abnormal lab results 12/11/21 12/11/21 12/11/21 Range/Units 06:04 06:04 06:04 RBC 3.30 L (4.2-5.4) M/uL Hgb 11.1 L (12.0-16.0) g/dL Hct 32.8 L (37-47) % MPV 10.5 H (7.4-10.4) fL PT 20.7 H (9.0-12.0) Seconds INR 2.0 H (0.9-1.1) APTT 63.6 H* (21.0-31.0) Seconds Sodium 135 L (136-145) mmol/L Chloride 108 H (98-107) mmol/L Carbon Dioxide 20 L (21-32) mmol/L BUN 5 L (6-23) mg/dl Creatinine 0.42 L (0.6-1.2) mg/dl Glucose 108 H (70-99(Fasting)) mg/dl Calcium 8.2 L (8.5-10.1) mg/dl Urine Glucose (UA) (Negative) Urine Urobilinogen (Negative) 12/11/21 Range/Units 13:30 RBC (4.2-5.4) M/uL Hgb (12.0-16.0) g/dL Hct (37-47) % MPV (7.4-10.4) fL PT (9.0-12.0) Seconds INR (0.9-1.1) APTT (21.0-31.0) Seconds Sodium (136-145) mmol/L Chloride (98-107) mmol/L Carbon Dioxide (21-32) mmol/L BUN (6-23) mg/dl Creatinine (0.6-1.2) mg/dl Glucose (70-99(Fasting)) mg/dl Calcium (8.5-10.1) mg/dl Urine Glucose (UA) Trace H (Negative) Urine Urobilinogen Positive H (Negative) Diagnostic Findings no new imaging (1) Pulmonary emboli Pulmonary embolism type: multiple subsegmental (without acute cor pulmonale) Qualified Code(s): I26.94 - Multiple subsegmental pulmonary emboli without acute cor pulmonale
[2021-12-11] MEDS ORDERED: cefTRIAXone SODIUM 1,000 MG in DEXTROSE 5% 50 ML IV SCH (16:00)
[2021-12-11] MEDS ORDERED: WARFARIN SOD 2 MG TAB PO SCH (16:00)
[2021-12-11] MEDS: DOXYCYCLINE HYCLATE 100 MG CAP PO SCH (16:39)
[2021-12-11] MEDS: metroNIDAZOLE 500 MG TAB PO SCH ×2 (16:39→23:35)
[2021-12-11] MEDS: cefTRIAXone SODIUM 1,000 MG in DEXTROSE 5% 50 ML IV SCH (16:40)
[2021-12-11] MEDS: WARFARIN SOD 1 MG TAB PO SCH (16:40)
[2021-12-11] MEDS: HEPARIN SODIUM/DEXTROSE 25,000 UNITS/500 ML BAG IV SCH (17:40)
[2021-12-11] MEDS ORDERED: LACOSAMIDE 100 MG in SODIUM CHLORIDE 0.9% 50 ML IV ONE (18:00)
[2021-12-11] MEDS: ACETAMINOPHEN SUSP 160 MG/5 ML UDC PO PRN (23:35)
[2021-12-12] MEDS: DOXYCYCLINE HYCLATE 100 MG CAP PO SCH ×2 (05:45→17:10)
[2021-12-12] MEDS: ACETAMINOPHEN SUSP 160 MG/5 ML UDC PO PRN (05:45)
[2021-12-12 06:00] LABS: Hematocrit (blood only) 30.7 % (37-47); Hemoglobin 10.4 g/dL (12.0-16.0); Mean Corpuscular Hgb Conc 33.9 g/dL (32-36); Mean Corpuscular Volume 97.5 fL (80-100); Mean Platelet Volume 10.8 fL (7.4-10.4); Platelet Count 387 K/uL (130-400); RDW Coefficient of Variation 12.3 % (11.5-14.5); RDW Standard Deviation 43.4 fL (36.4-46.3); Red Blood Count 3.15 M/uL (4.2-5.4); White Blood Count 9.69 K/uL (4.8-10.8)
[2021-12-12] MEDS: LACOSAMIDE 50 MG TABLET PO SCH ×2 (06:00→20:19)
[2021-12-12 06:19] LABS: Anion Gap 8 (3-11); BUN Creatinine Ratio 19.4 (10-20); Blood Urea Nitrogen 7 mg/dl (6-23); Calcium 7.4 mg/dl (8.5-10.1); Carbon Dioxide 20 mmol/L (21-32); Chloride 104 mmol/L (98-107); Est GFR (African American) > 150.0 ml/min; Est GFR (Non-African American) 132.1 ml/min; Glucose 105 mg/dl (70-99(Fasting)); Potassium 3.6 mmol/L (3.5-5.1); Sodium 132 mmol/L (136-145)
[2021-12-12] MEDS: levETIRAcetam 500 MG TAB PO SCH ×2 (06:19→16:43)
[2021-12-12] MEDS: PHENobarbitaL 30 MG TAB PO SCH ×2 (06:19→20:24)
[2021-12-12] MEDS: metroNIDAZOLE 500 MG TAB PO SCH ×2 (06:19→16:41)
[2021-12-12] MEDS: POLYETHYLENE (MIRALAX) 17 GM PACK PO SCH (06:20)
[2021-12-12 06:29] LABS: Partial Thromboplastin Ratio 4.2; Prothrombin Time 55.4 Seconds (9.0-12.0)
[2021-12-12] MEDS ORDERED: ONDANSETRON INJ 2 MG/ML 2 ML VIAL ONE (06:50)
[2021-12-12 06:54] LABS: INR 5.7 (0.9-1.1); Partial Thromboplastin Time 116.1 Seconds (21.0-31.0)
--- NOTE | 2021-12-12 09:52 | Hospitalist Progress Note ---
Date of Service December 12, 2021 Assessment & Plan (1) Pulmonary emboli: (2) Developmental delay, profound: Plan: #. B/L PE d/t LLE DVT #. LLE DVT #. Fever, Gardnarella UTI/Otitis Externa Patient presented with acute swelling of left lower extremity Admitting LLE venous Doppler positive for DVT Admitting CTA chest: Positive for extensive bilateral PE with mild right-sided heart strain. Admitting troponin elevated at 0.06, flat trended. Admitting ECHO with EF of >70% and grossly normal RV systolic function. Off Heparin, INR 5.7, Warfarin Held, No VITK will be given unless she bleeds Doxy, Flagyl, and Rocephin #. Increased seizures Parents report that patient has increased seizures since after starting ciprofloxacin for otitis externa right side on October 30, 2021 They do not want ciprofloxacin to be continued while inpatient. Gael DC'd. On Doxy, Flagyl, and Rocephin, F/u with [facility] for f/u on Otitis Externa. Per the parents, 3-4 seizures per week is normal for the patient but patient had 30 seizures on the day of arrival. Admitting CT head: No new acute findings. 12/08 EEG: reviewed. abnormal EEG Keppra. Phenobarb, Vimpat Klonopin daily for now. Pt eating less than her baseline per parents, will continue with gentle ivf #. History of cerebral palsy #. Developmental delay #. Failure to thrive Patient has history of cerebral palsy, at baseline gets on her knees in the padded areas of her home, wheelchair-bound other times Patient is on soft diet, likes oatmeal, BMI 16.6 at presentation, dietary consult - recs appreciated. DNR/DNI Daily INR, DC when safe Warfarin dose established GENERAL: sleeping, couldn't hear, curled up, spastic hands and feet, lean and thin appearance HEENT: No pallor, no icterus. Pupils equal, round and reactive to light. Oral mucosa moist. NECK: No JVD, no neck masses. HEART: S1 and S2 heard. Regular rate and rhythm. No murmur, no gallop. RESPIRATORY SYSTEM: No accessory muscle use. No wheezing, no crackles. ABDOMEN: Soft, bowel sounds present, nontender, no distention. CENTRAL NERVOUS SYSTEM: No facial droop. EXTREMITIES: LLE swelling improved per Father. RLE thin and no edema. Pt moved extremities Admission and Anticipated Discharge Date Admission Date: December 07, 2021 Subjective Patient seen offers no history, father at the bedside, Mult Seizures throughout the night Results & Data Results & Data ([facility]) Vital Signs (Past 12 Hours) Vital Signs Temp Pulse Resp BP BP Pulse Ox 12/12/21 08:19 36.4 C L 104 H 18 99/68 L 98 12/12/21 03:35 38.5 C H 117 H 18 107/70 96 12/12/21 00:32 37.8 C H 12/11/21 22:00 38.5 C H 130 H 18 110/76 97 (1) Pulmonary emboli Pulmonary embolism type: multiple subsegmental (without acute cor pulmonale) Qualified Code(s): I26.94 - Multiple subsegmental pulmonary emboli without acute cor pulmonale
--- NOTE | 2021-12-12 14:31 | Communication Note ---
Date of Service: December 12, 2021 I saw Ursula today. I know her well from multiple visits over the years. Is the first hospitalization she has had since childhood and was precipitated by tr eatment of an external otitis with antibiotics, the development of a DVT with pulmonary embolism, and has been exacerbated by the menstrual cycle which often precipitates seizures in her case and she presented with quite a number of seizures which have cooled down over the last few days and EEGs have shown some potentially epileptogenic bursts of short duration without clinical manifestations or least manifestations at we could see on video and is generally slow. CT scan shows a profound loss of posterior cortices of about the central gyrus back with relatively intact frontal cortex and relatively normal lateral ventricular size in the frontal lobes. 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 Currently her mother feels she still is having some seizures but there are very few in number very brief at this point I do not think we need to do anything more than what has already been done i.e. increasing the Keppra to 1500 mg twice a day, maintaining the phenobarbital at a high dose which is been standard for her over the years, and adding Vimpat 100 mg twice a day and keeping the Klonopin 1 tablet in the morning for the foreseeable future but I suspect we will cut this back on an outpatient basis when things cool down. Unfortunately the novel anticoagulants interact with her anticonvulsants and we now have to have her on Coumadin which is going to be a very difficult titration in view of her size and some of the medications that also interfere with Coumadin metabolism but hopefully on an outpatient basis this can get squared away but will require frequent blood draws At this point I am going to be available should things change but for now I think the initial plan as outlined above and developed by Constance Max and Constance Thomas MD should be adhered to and we will arrange a follow-up visit probably telephonic or by video when she is discharged back home in a stable condition Uche Figueroa MD
[2021-12-12] MEDS ORDERED: LACOSAMIDE 200 MG in SODIUM CHLORIDE 0.9% 50 ML IV PRN (15:00)
[2021-12-12] MEDS: cefTRIAXone SODIUM 1,000 MG in DEXTROSE 5% 50 ML IV SCH ×2 (16:44→20:11)
--- NOTE | 2021-12-12 18:52 | Electrocardiogram Report ---
Test Reason : Blood Pressure : / mmHG Vent. Rate : 121 BPM Atrial Rate : 121 BPM P-R Int : 122 ms QRS Dur : 060 ms QT Int : 302 ms P-R-T Axes : 057 -17 026 degrees QTc Int : 428 ms Poor data quality, interpretation may be adversely affected Sinus tachycardia Low voltage QRS Borderline ECG When compared with ECG of 08-DEC-2021 09:19, ST no longer depressed in Anterior leads T wave inversion no longer evident in Anterior leads Confirmed by Irvin Mendieta ([id number]) on 12/12/2021 6:52:16 PM Referred By: REFERRED SELF Confirmed By:Caleb Mendieta
[2021-12-12] MEDS: SODIUM CHLORIDE 0.9% 1000ML 1,000 ML IV SCH (20:19)
[2021-12-12] MEDS: ONDANSETRON INJ 2 MG/ML 2 ML VIAL IV PRN (21:15)
[2021-12-13] MEDS: metroNIDAZOLE 500 MG TAB PO SCH ×3 (00:51→16:29)
[2021-12-13] MEDS: LACOSAMIDE 100 MG in SODIUM CHLORIDE 0.9% 50 ML IV PRN (06:01)
[2021-12-13] MEDS: LACOSAMIDE 50 MG TABLET PO SCH ×2 (06:02→16:51)
[2021-12-13 06:29] LABS: Hematocrit (blood only) 33.3 % (37-47); Mean Corpuscular Hemoglobin 32.5 pg (25-34); Mean Corpuscular Volume 98.5 fL (80-100); Mean Platelet Volume 10.3 fL (7.4-10.4); Platelet Count 453 K/uL (130-400); RDW Coefficient of Variation 12.4 % (11.5-14.5); Red Blood Count 3.38 M/uL (4.2-5.4); White Blood Count 15.87 K/uL (4.8-10.8)
[2021-12-13 06:49] LABS: BUN Creatinine Ratio 25.6 (10-20); Calcium 7.5 mg/dl (8.5-10.1); Creatinine Clr Calc Pharmacy 91.4 ml/min; Est GFR (African American) 149.1 ml/min; Est GFR (Non-African American) 128.6 ml/min; Potassium 3.5 mmol/L (3.5-5.1)
[2021-12-13 07:26] LABS: INR 2.1 (0.9-1.1); Prothrombin Time 21.9 Seconds (9.0-12.0)
[2021-12-13] MEDS: DOXYCYCLINE HYCLATE 100 MG CAP PO SCH ×2 (07:30→16:35)
[2021-12-13] MEDS: POLYETHYLENE (MIRALAX) 17 GM PACK PO SCH (07:30)
[2021-12-13] MEDS: levETIRAcetam 500 MG TAB PO SCH ×2 (07:31→16:34)
[2021-12-13] MEDS: PHENobarbitaL 30 MG TAB PO SCH ×2 (07:35→20:38)
[2021-12-13] MEDS: ONDANSETRON INJ 2 MG/ML 2 ML VIAL IV PRN (07:37)
--- NOTE | 2021-12-13 09:46 | Hospitalist Progress Note ---
Date of Service December 13, 2021 Assessment & Plan (1) Pulmonary emboli: (2) Developmental delay, profound: Plan: #. B/L PE d/t LLE DVT #. LLE DVT #. Fever, Gardnarella UTI/Otitis Externa/Leukocytosis Patient presented with acute swelling of left lower extremity Admitting LLE venous Doppler positive for DVT Admitting CTA chest: Positive for extensive bilateral PE with mild right-sided heart strain. Admitting troponin elevated at 0.06, flat trended. Admitting ECHO with EF of >70% and grossly normal RV systolic function. Off Heparin, INR 2.1, Warfarin 1 mg daily or as per INR Doxy, Flagyl, and Rocephin, Afeb since 3am 12/12/21, WBCs up today, CXR ordered #. Increased seizures Parents report that patient has increased seizures since after starting ciprofloxacin for otitis externa right side on October 30, 2021 They do not want ciprofloxacin to be continued while inpatient. Cipro DC'd. On Doxy, Flagyl, and Rocephin, F/u with [facility] ENT for f/u on Otitis Externa. Per the parents, 3-4 seizures per week is normal for the patient but patient had 30 seizures on the day of arrival. Admitting CT head: No new acute findings. 12/08 EEG: reviewed. abnormal EEG Keppra. Phenobarb, Vimpat Klonopin daily for now. Pt eating less than her baseline per parents, will continue with gentle ivf #. History of cerebral palsy #. Developmental delay #. Failure to thrive Patient has history of cerebral palsy, at baseline gets on her knees in the padded areas of her home, wheelchair-bound other times Patient is on soft diet, likes oatmeal, BMI 16.6 at presentation, dietary consult - recs appreciated. DNR/DNI Daily INR, DC when safe Warfarin dose established GENERAL: sleeping, couldn't hear, curled up, spastic hands and feet, lean and thin appearance HEENT: No pallor, no icterus. Pupils equal, round and reactive to light. Oral mucosa moist. NECK: No JVD, no neck masses. HEART: S1 and S2 heard. Regular rate and rhythm. No murmur, no gallop. RESPIRATORY SYSTEM: No accessory muscle use. No wheezing, no crackles. ABDOMEN: Soft, bowel sounds present, nontender, no distention. CENTRAL NERVOUS SYSTEM: No facial droop. EXTREMITIES: LLE swelling improved per Father. RLE thin and no edema. Pt moved extremities Admission and Anticipated Discharge Date Admission Date: December 07, 2021 Subjective Patient seen offers no history, more interactive, father at the bedside Results & Data Results & Data ([facility]) Vital Signs (Past 12 Hours) Vital Signs Temp Pulse Pulse Resp BP Pulse Ox 12/13/21 08:19 37.0 C 117 H 20 120/71 96 12/13/21 02:51 36.8 C 114 H 20 111/74 96 12/12/21 23:59 114 H 12/12/21 22:00 36.9 C 115 H 20 113/70 95 (1) Pulmonary emboli Pulmonary embolism type: multiple subsegmental (without acute cor pulmonale) Qualified Code(s): I26.94 - Multiple subsegmental pulmonary emboli without acute cor pulmonale
--- NOTE | 2021-12-13 10:59 | XRay Report ---
XR chest 1V portable CLINICAL HISTORY: Fever, Leukocytosis TECHNIQUE: Single frontal radiograph of the chest was obtained. Comparison: Comparison is made to chest one view 12/07/2021 FINDINGS: No lines and tubes are seen. The cardiomediastinal silhouette is normal. Elevation of the left hemidi aphragm is seen, airspace opacity is seen in the left lower lung. Dextroscoliosis is seen which is pa rtly positional. No evidence of pleural effusion or pneumothorax. IMPRESSION: Left lung base airspace opacity likely represents atelectasis in this patient with left hemidiaphragm atic elevation, with superimposed pneumonia not excluded. ACT 112: Negative or not required by law. Electronically signed by: Willy Cook M.D. 12/13/2021 10:57 AM
[2021-12-13] MEDS: SODIUM CHLORIDE 0.9% 1000ML 1,000 ML IV SCH (14:24)
[2021-12-13] MEDS: WARFARIN SOD 1 MG TAB PO SCH (16:30)
[2021-12-13] MEDS: cefTRIAXone SODIUM 1,000 MG in DEXTROSE 5% 50 ML IV SCH (16:32)
[2021-12-14] MEDS: metroNIDAZOLE 500 MG TAB PO SCH ×2 (01:16→07:57)
[2021-12-14] MEDS: LACOSAMIDE 100 MG in SODIUM CHLORIDE 0.9% 50 ML IV PRN (05:18)
[2021-12-14] MEDS: SODIUM CHLORIDE 0.9% 1000ML 1,000 ML IV SCH (05:18)
[2021-12-14] MEDS: LACOSAMIDE 50 MG TABLET PO SCH (05:19)
[2021-12-14 07:18] LABS: Basophils # (auto) 0.03 K/uL (0-0.2); Basophils % (auto) 0.4 %; Eosinophils # (auto) 0.01 K/uL (0-0.5); Eosinophils % (auto) 0.1 %; Hematocrit (blood only) 33.4 % (37-47); Immature Granulocytes # (auto) 0.02 K/uL (0.00-0.02); Immature Granulocytes % (auto) 0.2 %; Lymphocytes # (auto) 1.09 K/uL (1.2-3.4); Lymphocytes % (auto) 12.8 %; Mean Corpuscular Hemoglobin 32.9 pg (25-34); Mean Corpuscular Hgb Conc 32.9 g/dL (32-36); Mean Platelet Volume 9.8 fL (7.4-10.4); Monocytes # (auto) 0.64 K/uL (0.11-0.59); Monocytes % (auto) 7.5 %; Neutrophils # (auto) 6.71 K/uL (1.4-6.5); Platelet Count 417 K/uL (130-400); RDW Coefficient of Variation 12.7 % (11.5-14.5); RDW Standard Deviation 46.5 fL (36.4-46.3); Red Blood Count 3.34 M/uL (4.2-5.4)
[2021-12-14 07:39] LABS: Alanine Aminotransferase 66 U/L (7-52); Albumin Globulin Ratio 0.8 (0.9-2); Albumin Level 2.7 gm/dl (3.4-5.0); Alkaline Phosphatase 119 U/L (34-104); Anion Gap 4 (3-11); Aspartate Aminotransferase 115 U/L (13-39); BUN Creatinine Ratio 26.3 (10-20); Bilirubin,Total 0.3 mg/dl (0.2-1.0); Blood Urea Nitrogen 10 mg/dl (6-23); Calcium 7.5 mg/dl (8.5-10.1); Carbon Dioxide 21 mmol/L (21-32); Chloride 110 mmol/L (98-107); Creatinine Clr Calc Pharmacy 93.8 ml/min; Est GFR (African American) > 150.0 ml/min; Est GFR (Non-African American) 129.7 ml/min; Globulin 3.4 gm/dl (2.5-4.0); Glucose 92 mg/dl (70-99(Fasting)); Potassium 3.6 mmol/L (3.5-5.1); Sodium 135 mmol/L (136-145); Total Protein 6.1 gm/dl (6.0-8.3)
[2021-12-14 07:44] LABS: INR 4.1 (0.9-1.1); Prothrombin Time 40.7 Seconds (9.0-12.0)
[2021-12-14] MEDS: levETIRAcetam 500 MG TAB PO SCH (07:57)
[2021-12-14] MEDS: DOXYCYCLINE HYCLATE 100 MG CAP PO SCH (07:57)
[2021-12-14] MEDS: PHENobarbitaL 30 MG TAB PO SCH (08:01)
[2021-12-14] MEDS: POLYETHYLENE (MIRALAX) 17 GM PACK PO SCH (08:01)
--- NOTE | 2021-12-14 09:51 | Hospitalist Progress Note ---
Date of Service December 14, 2021 Assessment & Plan (1) Pulmonary emboli: (2) Developmental delay, profound: Plan: #. B/L PE d/t LLE DVT #. LLE DVT Patient presented with acute swelling of left lower extremity Admitting LLE venous Doppler positive for DVT Admitting CTA chest: Positive for extensive bilateral PE with mild right-sided heart strain. Admitting troponin elevated at 0.06, flat trended. Admitting ECHO with EF of >70% and grossly normal RV systolic function. Patient is started on heparin drip in the ED, continue with same. Warfarin on DC #. Increased seizures Parents report that patient has increased seizures since after starting ciprofloxacin for otitis externa right side on October 30, 2021 They do not want ciprofloxacin to be continued while inpatient. Cipro DC'd. F/u with [facility] ENT for f/u on Otitis Externa. Per the parents, 3-4 seizures per week is normal for the patient but patient had 30 seizures on the day of arrival. Admitting CT head: No new acute findings. 12/08 EEG: reviewed. abnormal EEG Vimpat 100mg Q12 Keppra dose increased 1.5 g BID Klonopin daily for now. #. History of cerebral palsy #. Developmental delay #. Failure to thrive Patient has history of cerebral palsy, at baseline gets on her knees in the padded areas of her home, wheelchair-bound other times Patient is on soft diet, likes oatmeal, BMI 16.6 at presentation, dietary consult - recs appreciated. DNR/DNI Disposition: DC home today, INR 4, Hold Warfarin until tomorrow then resume at 0.5 mg daily. GENERAL: Pleasant, couldn't hear, curled up, spastic hands and feet, lean and thin appearance HEENT: No pallor, no icterus. Pupils equal, round and reactive to light. Oral mucosa moist. NECK: No JVD, no neck masses. HEART: S1 and S2 heard. Regular rate and rhythm. No murmur, no gallop. RESPIRATORY SYSTEM: No accessory muscle use. No wheezing, no crackles. ABDOMEN: Soft, bowel sounds present, nontender, no distention. CENTRAL NERVOUS SYSTEM: No facial droop. EXTREMITIES: LLE swelling improved per Father. RLE thin and no edema. Pt moved extremities Admission and Anticipated Discharge Date Admission Date: December 07, 2021 Subjective Patient seen offers no history, more interactive, father at the bedside Results & Data Results & Data ([facility]) Vital Signs (Past 12 Hours) Vital Signs Temp Pulse Pulse Resp BP BP Pulse Ox 12/14/21 07:30 36.9 C 102 H 16 96/54 L 95 12/14/21 02:40 36.8 C 97 H 18 92/55 L 95 12/13/21 23:59 95 H 12/13/21 22:00 36.8 C 98 H 20 102/69 96 (1) Pulmonary emboli Pulmonary embolism type: multiple subsegmental (without acute cor pulmonale) Qualified Code(s): I26.94 - Multiple subsegmental pulmonary emboli without acute cor pulmonale
== END 2021-12-14 12:36 | disposition home or self-care (01) | DRG 299 ==
LOC: ED 11:16 → SUATTDRO 16:43 → 2S 16:43
DX: I26.94 Multiple subsegmental thrombotic pulmonary emboli without acute cor pulmonale; G40.209 Localization-related (focal) (partial) symptomatic epilepsy and epileptic syndromes with complex partial seizures, not intractable, without status epilepticus; G80.9 Cerebral palsy, unspecified; Z91.018 Allergy to other foods; I82.412 Acute embolism and thrombosis of left femoral vein; Z66 Do not resuscitate; I82.432 Acute embolism and thrombosis of left popliteal vein; R62.7 Adult failure to thrive; Z86.61 Personal history of infections of the central nervous system; I82.422 Acute embolism and thrombosis of left iliac vein; Z99.3 Dependence on wheelchair; Z88.1 Allergy status to other antibiotic agents; H91.93 Unspecified hearing loss, bilateral; H54.8 Legal blindness, as defined in USA; F81.9 Developmental disorder of scholastic skills, unspecified